=== PATIENT | male | born 1970 | race Caucasian/White ===

== ENCOUNTER 2016-10-20 00:57 | Inpatient (IN) | payer MEDICAID ==
[2016-10-20 01:37] LABS: BASO # 0.1 K/uL (0.0-0.2); BASO % 0.7 % (0.0-2.0); EOS # 0.3 K/uL (0.0-0.7); EOS % 4.1 % (0.0-4.0); HEMATOCRIT 46.8 % (35.0-51.0); LYMPH # 1.3 K/uL (1.0-4.3); LYMPH % 16.6 % (20.0-40.0); MEAN CORPUSCULAR HEMOGLOBIN 28.6 pg (27.0-31.0); MEAN CORPUSCULAR HGB CONC 33.6 g/dL (33.0-37.0); MEAN PLATELET VOLUME 8.9 fL (7.2-11.7); MONO # 0.9 K/uL (0.0-0.8); MONO % 11.2 % (0.0-10.0); NRBC % 0.1 % (0.0-2.0); RED CELL DISTRIBUTION WIDTH 13.8 % (11.5-14.5); WHITE BLOOD COUNT 7.7 K/uL (4.8-10.8)
[2016-10-20 01:46] LABS: CHLORIDE 102 mmol/L (98-107); POTASSIUM 3.4 mmol/L (3.6-5.2); SODIUM 141 mmol/L (132-148)
[2016-10-20 01:48] LABS: GFR AFRICAN-AMERICAN > 60
[2016-10-20 01:49] LABS: ALB/GLOB RATIO 1.1 (1.0-2.1); ALKALINE PHOSPHATASE 93 U/L (38-126); ALT/SGPT 25 U/L (21-72); AST/SGOT 19 U/L (17-59); BILIRUBIN,TOTAL 0.9 mg/dL (0.2-1.3); BLOOD UREA NITROGEN 16 mg/dL (9-20); CALCIUM 9.2 mg/dl (8.6-10.4); CARBON DIOXIDE 26 mmol/L (22-30); GLUCOSE,RANDOM 89 mg/dL (75-110); TOTAL PROTEIN 7.6 g/dL (6.3-8.3)
[2016-10-20 01:50] LABS: ALCOHOL SERUM < 10 mg/dl (0-10)
[2016-10-20 02:18] LABS: RBC URINE 5 /hpf (0-3); URINE BILIRUBIN NEGATIVE (NEGATIVE); URINE COLOR Amber (YELLOW); URINE GLUCOSE (UA) NORMAL (Normal); URINE KETONE NEGATIVE (NEGATIVE); URINE LEUKOCYTE ESTERASE NEG Leu/uL (Negative); URINE PROTEIN NEGATIVE (NEGATIVE); WBC URINE 2 /hpf (0-5)
[2016-10-20 02:30] LABS: URINE BLOOD TRACE (NEGATIVE)
--- NOTE | 2016-10-20 03:06 | C.PDOC ---
History Of Present Illness A 46 y/o M presents to the ER c/o depression and suicidal ideation for a while now. Denies any somatic complaints at this time. Time Seen by Provider: 10/20/16 01:24 Chief Complaint (Nursing): Psychiatric Evaluation History Per: Patient History/Exam Limitations: no limitations Onset/Duration Of Symptoms: Hrs Current Symptoms Are (Timing): Still Present Suicide/Self Injury Attempted (Context): None Modifying Factor(s): None Severity: Mild Associated Symptoms: Suicidal Thoughts. denies: Suicidal Plan Involuntary Hold By: None Recent travel outside of the [place]: No Additional History Per: Patient Past Medical History Reviewed: Historical Data, Nursing Documentation, Vital Signs Vital Signs: Last Vital Signs Temp 97.6 F 10/20/16 01:14 Pulse 81 10/20/16 01:14 Resp 20 10/20/16 01:14 BP 128/81 10/20/16 01:14 Pulse Ox 98 10/20/16 03:06 - Medical History PMH: Depression Denies: Diabetes, Hepatitis, HIV, HTN (Patient denied), Seizures, Sexually Transmitted Disease - [facility] Procedures GROUP PSYCHOTHERAPY (02/23/15) MEDICATION MANAGEMENT (02/23/15) Family History: States: Diabetes - Social History Hx Tobacco Use: Yes Hx Alcohol Use: No Hx Substance Use: Yes - Immunization History Hx Tetanus Toxoid Vaccination: No Hx Influenza Vaccination: Yes Hx Pneumococcal Vaccination: No Review Of Systems Except As Marked, All Systems Reviewed And Found Negative. Constitutional: Negative for: Fever, Chills Cardiovascular: Negative for: Chest Pain, Palpitations Respiratory: Negative for: Shortness of Breath Gastrointestinal: Negative for: Nausea, Vomiting, Abdominal Pain, Diarrhea Neurological: Negative for: Headache Psych: Positive for: Depression, Suicidal ideation Physical Exam - Physical Exam Appears: Non-toxic, No Acute Distress Skin: Warm, Dry Head: Atraumatic, Normacephalic Cardiovascular: Rhythm Regular Respiratory: Normal Breath Sounds, No Rales, No Rhonchi, No Wheezing Gastrointestinal/Abdominal: Soft, No Tenderness Neurological/Psych: Oriented x3, Normal Speech, Normal Cognition ED Course And Treatment - Laboratory Results Result Diagrams: 10/20/16 01:33 10/20/16 01:33 Lab Interpretation: Abnormal (tox + cannabanoids, cocaine) O2 Sat by Pulse Oximetry: 98 (RA) Pulse Ox Interpretation: Normal Reevaluation Time: 03:04 Reassessment Condition: Improved (calm, cooperative) - Physician Consult Information Outcome Of Conversation: 0300: d/w Rosemaryi, ok to 5E Medical Decision Making Medical Decision Making: Impression: A 46 y/o M presents to the ER c/o depression and suicidal ideation for a while now. Plans: * Blood work up * UA * Admit to hospital * Reassess polysubstance abuse, depression Disposition Doctor Will See Patient In The: Hospital Counseled Patient/Family Regarding: Studies Performed, Diagnosis - Disposition Disposition: HOSPITALIZED Disposition Time: 03:06 Condition: GOOD Forms: [facility] (H[place]er) - Clinical Impression Clinical Impression: Polysubstance (excluding opioids) dependence, Depression - Scribe Statement The provider has reviewed the documentation as recorded by the Scribe Calista merino All medical record entries made by the Scribe were at my direction and personally dictated by me. I have reviewed the chart and agree that the record accurately reflects my personal performance of the history, physical exam, medical decision making, and the department course for this patient. I have also personally directed, reviewed, and agree with the discharge instructions and disposition.
--- NOTE | 2016-10-20 07:06 | PCM.BM ---
<Norma Melendrez - Last Filed: 10/20/16 07:04> Treatment Plan Problems - Problems identified on initial assessmt Problem 1 Date Initiated: 10/20/16 Time Initiated: 07:04 Assessment reference: NA Status: Active Comment: suicidal ideations Problem 2 Date Initiated: 10/20/16 Time Initiated: 07:05 Assessment reference: NA Status: Active Comment: cocaine and marijuana abuse Treatment assets and liabiliti Patient Assests: cooperative, ADL independent Patient Liabilities: poor support system, substance abuse - Milieu Protocol Maintain good personal hygiene: daily Encourage regular showers, daily Remind patient to perform daily oral care Conduct patient checks and document Observation sheet: Q15 minutes Maintain personal safety: every shift Educate patient to report safety concerns to staff, every shift Monitor environment for contraband/sharps Medication safety: Monitor for expected outcome, potential side effects: every shift, Assess barriers to learning: every shift, Assess readiness for medication education: every shift <Arabella Rodriguez - Last Filed: 10/20/16 11:01> Family Contact Family involvement: Famliy/SO not involved - Goals for Treatment Patient goals for treatment: "I need an outpatient program." Discharge/Continuing Care - Education Needs Education Needs: Patient Medication, Patient Coping Skills, Patient Placement options, Patient Community resources - Discharge Discharge Criteria: Tolerates medication w/o severe side effects, No longer exhibiting s/s of withdrawal, Reduction of target symptoms Discharge to:: Home - Treatment Team Participation Patient/Family/SO Statement: 10/20/16 11:00 "I need an outpatient program." Discussed with Family/SO: No Was Patient/Family/SO present at Treatment Team Meeting: Yes <James Calle - Last Filed: 10/21/16 13:38> - Diagnosis (1) Depression Status: Acute Interventions: 10/21/16 13:38 * Assess/adjust medications daily and /or as needed * See patient on an individual basis 7x/week to assess level of depressive behaviors and stability * Discuss risks, benefits, side effects and alternatives of medications
--- NOTE | 2016-10-20 14:21 | PCM.PSYCH ---
Initial Psychiatric Evaluation - Initial Psychiatric Evaluation Type of Admission: Voluntary Legal Status: Capacity Chief Complaint (in patient's own words): "I had thoughts of hurting myself" Patient's Reaction to Hospitalization: cooperative History of Present Illness and Precipitating Events: Patient is a 46 year old male who came in because he was feeling depressed and having thoughts of hurting himself. Patient denies hearing voices. Patient has a history of cocaine use since the age of 26 which he claims he has been clean from since 2010 until a few days ago. However, urine tox screen was positive for opiates and cocaine 02/23/15 when he was hospitalized for depression at [facility]. Utox on current admission was positive for cocaine and marijuana. Patient says he smokes a joint occasionally. Patient denies alcohol or any other drugs. Patient says he relapsed because his friends were doing cocaine and he wanted some. Patient has been to 4 rehabs (2001, 2012, 2013, 2015). Patient has a history of depression and says he has been hospitalized 2 times. Patient has been taking Lexapro for one year which he ran out of 2 months ago. Today patient feels exhausted, no nausea, vomiting, or abdominal pain. Patient says he feels safe being in the hospital. 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 [employer], has a 23 year old child cocaine last used 1/2 gram, denies alcohol, marijuana: 1 joint occasionally, tobacco: 1/2 pack per day for 15 years, denies other drugs Past Psychiatric History - Past Psychiatric History Previous Treatment History: Inpatient At [facility] hospital: [facility] Date: 02/24/15 Duration: 4 Nature of Treatment: depression, discharged to [facility] [place]" History of ETOH/Drug Use: cocaine marijuana- 1 joint occasionally no alcohol or other drugs tobacco: 1/2 pack per day for 15 years History of Family Illness: cousins-depressed Pertinent Medical Hx (Current Medical&Sleep Prob, Allergies): Allergies Allergy/AdvReac Type Severity Reaction Status Date / Time sulfamethoxazole Allergy Verified 10/20/16 01:19 [From Bactrim] trimethoprim [From Bactrim] Allergy Verified 10/20/16 01:19 seafood Allergy Uncoded 10/20/16 01:19 No Known Home Med 10/20/16 Review of Systems - Psychiatric Psychiatric: Anxiety, Depression, Suicidal Ideation. absent: Auditory Hallucinations, Visual Hallucinations Mental Status Examination - Personal Presentation Personal Presentation: Looks stated age - Affect Affect: Constricted - Motor Activity Motor Activity: Calm - Reliability in Providing Information Reliability in Providing Information: Fair - Speech Speech: Organized - Mood Mood: Depressed, Anxious - Formal Thought Process Formal Thought Process: No Impairment - Obsessions/Compulsions Obsessions: No Compulsions: No - Cognitive Functions Orientation: Person, Place, Situation, Time Sensorium: Alert Attention/Concentration: Attentive Abstract Thinking: Gaffney Estimate of Intelligence: Average Judgement: Intact, as evidence by: Insight regarding need for hospitalization Memory: Recent intact, as evidence by: Ability to recall events of the day - Risk Risk: Suicidal - Strength & Assets Inventory Strength & Assets Inventory: Employment history DSM 5 DX - DSM 5 DSM 5 Diagnosis: major depressive disorder, recurrent episode cocaine use disorder, moderate cocaine withdrawal tobacco use disorder, moderate - Recommended/Plan of Treatment Treatment Recommendations and Plan of Treatment: Major depressive disorder -Support and psychoeducation -Attend activities and groups -Use CBT -Lexapro 10 mg po daily -Neurontin 100mg PO TID -Haldol 5mg po PRN -Cogentin 2 mg po PRN -Diphenhydramine 50 mg PRN -Atarax 25mg PRN -Trazodone 50 mg PO HS Cocaine use disorder -Use ME for abstinence -Consider referring to a rehabilitation Tobacco use disorder -Education -Nicotine patch 33min Projected ELOS: 7 Prognosis: fair with medications - Smoking Cessation Smoking Cessation Initiated: Yes
--- NOTE | 2016-10-20 15:29 | CP.PCM.CON ---
<Jamie Baumann - Last Filed: 10/20/16 15:48> History of Present Illness - History of Present Illness History of Present Illness: 46M PMHx depression, sarcoidosis and substance use presented here for depression and suicidal ideation. Medicine team consulted for sarcoidosis. Pt said he was diagnosed in 2005 after having skin breakout on his face while in [facility]. Pt was sent to a derm office and had biopsy done on a nose lesion. Pt said since then he was managed by a doctor at [place], [place]. He has been taking Prednisone 20mg on daily basis until 2 months ago when he ran out and was not able to see that doctor. Pt complains of right elbow pain and bilateral knee pain for the past month, for which he denied any trauma or fall. Pt said he had similar joint pain and skin breakout when he missed Prednisone in the past for about several weeks. Pt was last seen by that doctor 8 months ago. Pt also complains of blurry vision started 6 months ago and progressively worsened. Currently denied other joint pain, skin rashes, SOB, chest pain, fever, chills or other symptoms. PMHx: see above. 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 [employer], has a 23 year old child cocaine last used 1/2 gram, denies alcohol, marijuana: 1 joint occasionally, tobacco: 1/2 pack per day for 15 years, denies other drugs Allergies: Bactrim Review of Systems - Constitutional Constitutional: absent: Weakness - EENT Eyes: Blurred Vision, Change in Vision Ears: absent: Dizziness Nose/Mouth/Throat: absent: Neck Pain - Cardiovascular Cardiovascular: absent: Chest Pain, Chest Pain at Rest, Dyspnea - Respiratory Respiratory: absent: Cough, Dyspnea, Chest Congestion - Gastrointestinal Gastrointestinal: absent: Constipation, Diarrhea, Vomiting - Genitourinary Genitourinary: absent: Dysuria, Pyuria - Musculoskeletal Musculoskeletal: Arthralgias (right elbow and bilateral knees). absent: Limited Range of Motion, Muscle Weakness, Numbness, Tingling - Integumentary Integumentary: absent: Bleeding Lesions, Lesions, New Lesions, Unusual Bruising , Wounds - Neurological Neurological: absent: Abnormal Gait, Focal Weakness - Psychiatric Psychiatric: Depression Past Patient History - Infectious Disease Hx of Infectious Diseases: None - Past Social History Smoking Status: Heavy Smoker > 10 Cigarettes Daily - CARDIAC Hx Cardiac Disorders: No Hx Hypertension: No (Patient denied) - PULMONARY Hx Respiratory Disorders: No Hx Tuberculosis: No - NEUROLOGICAL Hx Neurological Disorder: No Hx Seizures: No - HEENT Hx HEENT Problems: No - RENAL Hx Chronic Kidney Disease: No - ENDOCRINE/METABOLIC Hx Endocrine Disorders: No - HEMATOLOGICAL/ONCOLOGICAL Hx Blood Disorders: No Hx Human Immunodeficiency Virus (HIV): No - INTEGUMENTARY Hx Dermatological Problems: No Other/Comment: Sarcoidosis - MUSCULOSKELETAL/RHEUMATOLOGICAL Hx Musculoskeletal Disorders: No - GASTROINTESTINAL Hx Gastrointestinal Disorders: No - GENITOURINARY/GYNECOLOGICAL Hx Genitourinary Disorders: No Hx Sexually Transmitted Disorders: No - PSYCHIATRIC Hx Substance Use: Yes - SURGICAL HISTORY Hx Surgeries: No - ANESTHESIA Hx Anesthesia: No Meds Allergies/Adverse Reactions: Allergies Allergy/AdvReac Type Severity Reaction Status Date / Time sulfamethoxazole Allergy Verified 10/20/16 01:19 [From Bactrim] trimethoprim [From Bactrim] Allergy Verified 10/20/16 01:19 seafood Allergy Uncoded 10/20/16 01:19 - Medications Medications: Current Medications Acetaminophen (Tylenol 325mg Tab) 650 mg PO Q6 PRN PRN Reason: Fever >100.4 F Benztropine Mesylate (Cogentin) 2 mg PO Q6 PRN PRN Reason: Extra Pyramidal Symptoms Diphenhydramine HCl (Benadryl) 50 mg PO Q6 PRN PRN Reason: Extra Pyramidal Symptoms Escitalopram Oxalate (Lexapro) 10 mg PO DAILY DINORA Gabapentin (Neurontin) 100 mg PO TID DINORA Haloperidol (Haldol) 5 mg PO Q8 PRN PRN Reason: Moderate Agitation Hydroxyzine HCl (Atarax) 25 mg PO Q6 PRN PRN Reason: Agitation Trazodone HCl (Desyrel) 50 mg PO HS DINORA Physical Exam - Constitutional Appears: Non-toxic, No Acute Distress - Head Exam Head Exam: NORMOCEPHALIC - Eye Exam Eye Exam: Normal appearance Pupil Exam: NORMAL ACCOMODATION - Respiratory Exam Respiratory Exam: Clear to Auscultation Bilateral, NORMAL BREATHING PATTERN. absent: Rhonchi, Wheezes - Cardiovascular Exam Cardiovascular Exam: REGULAR RHYTHM, +S1, +S2. absent: Gallop, Rubs - GI/Abdominal Exam GI & Abdominal Exam: Normal Bowel Sounds, Soft. absent: Tenderness - Extremities Exam Extremities exam: Negative for: pedal edema Additional comments: right elbow, bilateral knee joints tenderness on palpation, FROMx4, strength and sensation intact - Back Exam Back exam: NORMAL INSPECTION. absent: paraspinal tenderness, rash noted, tenderness - Neurological Exam Neurological exam: Alert, Normal Gait, Oriented x3 - Psychiatric Exam Psychiatric exam: Normal Mood - Skin Skin Exam: Dry, Intact Results - Vital Signs Recent Vital Signs: Last Vital Signs Temp 97.3 F L 10/20/16 03:39 Pulse 75 10/20/16 04:24 Resp 18 10/20/16 04:24 BP 96/55 L 10/20/16 03:39 Pulse Ox 98 10/20/16 03:39 - Labs Result Diagrams: 10/20/16 01:33 10/20/16 01:33 Assessment & Plan - Assessment and Plan (Free Text) Assessment: Sardoidosis Pt currently has asymptomatic except right elbow and bilateral knee pain. Will restart pt's home dose of prednisone 20mg PO daily. Medicine team will sign off. Please reconsult if needed. Thank you. Substance use disorder Management as per psych. Depression Management as per psych. <Chapincito Faulkner M - Last Filed: 10/20/16 15:55> Meds - Medications Medications: Current Medications Acetaminophen (Tylenol 325mg Tab) 650 mg PO Q6 PRN PRN Reason: Fever >100.4 F Benztropine Mesylate (Cogentin) 2 mg PO Q6 PRN PRN Reason: Extra Pyramidal Symptoms Diphenhydramine HCl (Benadryl) 50 mg PO Q6 PRN PRN Reason: Extra Pyramidal Symptoms Escitalopram Oxalate (Lexapro) 10 mg PO DAILY DINORA Gabapentin (Neurontin) 100 mg PO TID DINORA Haloperidol (Haldol) 5 mg PO Q8 PRN PRN Reason: Moderate Agitation Hydroxyzine HCl (Atarax) 25 mg PO Q6 PRN PRN Reason: Agitation Potassium Chloride (K-Dur 20 Meq Er Tab) 20 meq PO ONCE ONE Stop: 10/21/16 16:01 Prednisone (Prednisone Tab) 20 mg PO DAILY DINORA Trazodone HCl (Desyrel) 50 mg PO HS [facility] Results - Vital Signs Recent Vital Signs: Last Vital Signs Temp 97.3 F L 10/20/16 03:39 Pulse 70 10/20/16 15:39 Resp 18 10/20/16 04:24 BP 113/71 10/20/16 15:39 Pulse Ox 98 10/20/16 03:39 - Labs Result Diagrams: 10/20/16 01:33 10/20/16 01:33 Attending/Attestation - Attestation I have personally seen and examined this patient.: Yes I have fully participated in the care of the patient.: Yes I have reviewed all pertinent clinical information: Yes Notes (Text): 10/20/16 15:53 Patient was seen and examined at bedside with the resident Patient stated that he's been taking prednisone 20 mg daily for the last 10 years. He ran out of medication recently and that he needs to be on it because of his diagnosis of sarcoidosis. We will start the patient on prednisone 20 mg daily. We will replace potassium. I discussed the plan of care with the resident and agree with the consultation note by the resident Thank you for allowing us to participate in the care of this patient Please reconsult as needed
[2016-10-21] MEDS ORDERED: Potassium Chloride 20 mEq ER Tab PO ONE (16:00)
--- NOTE | 2016-10-22 12:45 | PCM.PYCHPN ---
Psychiatric Progress Note - Psychiatric Progress Note Patient seen today, length of contact: 16 min Patient Chief Complaint: i am feeling depressed. Problems Identified/Issues Discussed: Patient seen and evaluated, chart reviewed and discussed with the nurse. Supportive therapy and psychoeducation were given. Patient reports depressed mood and still reports withdrawal symptoms including, cramps, nausea, anxiety and headaches. Patient reports at times feelings of hopelessness and helplessness. He remained isolated and withdrawn. He denies any auditory or visual hallucinations. He is tolerating the withdrawal medications and denies any side effects. Medication Change: Yes (methaodne taper) Medical Record Reviewed: Yes Mental Status Examination - Cognitive Function Orientation: Person, Place, Situation, Time Memory: Intact Attention: WNL Concentration: Poor Association: WNL Fund of Knowledge: Poor - Mood Mood: Depressed, Anxious - Affect Affect: Constricted - Speech Speech: Soft - Formal Thought Process Formal Thought Process: No Impairment - Suicidal Ideation Suicidal Ideation: No - Homicidal Ideation Homicidal Ideation: No Goal/Treatment Plan - Goal/Treatment Plan Need for Continued Stay: Discharge may exacerbated symptoms, Severe functional impairment Progress Toward Problem(s) and Goals/Treatment Plan: major depressive disorder, recurrent episode cocaine use disorder, moderate cocaine withdrawal tobacco use disorder, moderate Major depressive disorder -Support and psychoeducation -Attend activities and groups -Use CBT -Lexapro 10 mg po daily -Neurontin 100mg PO TID -Haldol 5mg po PRN -Cogentin 2 mg po PRN -Diphenhydramine 50 mg PRN -Atarax 25mg PRN -Trazodone 50 mg PO HS Cocaine use disorder -Use OK for abstinence -Consider referring to a rehabilitation Tobacco use disorder -Education -Nicotine patch - Smoking Cessation Smoking Cessation Initiated: No
--- NOTE | 2016-10-22 12:45 | PCM.PYCHPN ---
Psychiatric Progress Note - Psychiatric Progress Note Patient seen today, length of contact: 17 min Patient Chief Complaint: I am still feeling depressed Problems Identified/Issues Discussed: Patient seen and evaluated, chart reviewed and discussed with the nurse. Patient remained depressed and still reports withdrawal symptoms including, cramps, nausea, anxiety and headaches. He remained isolated and withdrawn. He denies any auditory or visual hallucinations. He is tolerating the withdrawal medications and denies any side effects. He needs more time for stabilization. Supportive therapy and psychoeducation were given. Medication Change: Yes (methaodne taper) Medical Record Reviewed: Yes Mental Status Examination - Cognitive Function Orientation: Person, Place, Situation, Time Memory: Intact Attention: WNL Concentration: Poor Association: WNL Fund of Knowledge: Poor - Mood Mood: Depressed, Anxious - Affect Affect: Constricted - Speech Speech: Soft - Formal Thought Process Formal Thought Process: No Impairment - Suicidal Ideation Suicidal Ideation: No - Homicidal Ideation Homicidal Ideation: No Goal/Treatment Plan - Goal/Treatment Plan Need for Continued Stay: Discharge may exacerbated symptoms, Severe functional impairment Progress Toward Problem(s) and Goals/Treatment Plan: Major depressive disorder -Support and psychoeducation -Attend activities and groups -Use CBT -Lexapro 10 mg po daily -Neurontin 100mg PO TID -Haldol 5mg po PRN -Cogentin 2 mg po PRN -Diphenhydramine 50 mg PRN -Atarax 25mg PRN -Trazodone 50 mg PO HS Cocaine use disorder -Use OR for abstinence -Consider referring to a rehabilitation Tobacco use disorder -Education -Nicotine patch - Smoking Cessation Smoking Cessation Initiated: No
[2016-10-23 10:32] VITALS: RESP 18
--- NOTE | 2016-10-23 18:00 | PCM.PYCHPN ---
Psychiatric Progress Note - Psychiatric Progress Note Patient seen today, length of contact: 15 minutes Patient Chief Complaint: I'm feeling much better Problems Identified/Issues Discussed: Issues seen. Chart reviewed. Case discussed with the staff. Issues related to illness and treatment were discussed with the patient. Ported compliant with treatment with no adverse affects. Tolerating treatment very well. At the time of evaluation, patient was awake alert oriented 3, no delusions, no auditory or visual hallucinations, no suicidal ideations or homicidal ideations. Medical Problems: Sarcoidosis Diagnostic Results: Reviewed Medication Change: No Medical Record Reviewed: Yes Consults ordered or reviewed: Reviewed Mental Status Examination - Cognitive Function Orientation: Person, Place, Situation, Time Memory: Intact Attention: WNL Concentration: WNL Association: [facility] Fund of Knowledge: [facility] Decription of patient's judgement and insights: Fair - Mood Mood: Neutral - Affect Affect: Other (Appropriate) - Speech Speech: Soft - Formal Thought Process Formal Thought Process: No Impairment - Suicidal Ideation Suicidal Ideation: No - Homicidal Ideation Homicidal Ideation: No Goal/Treatment Plan - Goal/Treatment Plan Need for Continued Stay: Remain at risks for inpatient hospitalization, Discharge may exacerbated symptoms, Severe functional impairment Progress Toward Problem(s) and Goals/Treatment Plan: Patient education Supportive therapy Continue treatment as before Estimated Date of D/C: 10/27/16 - Smoking Cessation Smoking Cessation Initiated: No
--- NOTE | 2016-10-24 16:11 | PCM.PYCHPN ---
Psychiatric Progress Note - Psychiatric Progress Note Patient seen today, length of contact: 15 minutes Patient Chief Complaint: I'm feeling much better Problems Identified/Issues Discussed: Issues seen. Chart reviewed. Case discussed with the staff. Issues related to illness and treatment were discussed with the patient. Ported compliant with treatment with no adverse affects. Tolerating treatment very well. Reported feeling much better .At the time of evaluation, patient was awake alert oriented 3, no delusions, no auditory or visual hallucinations, no suicidal ideations or homicidal ideations. Medical Problems: Sarcoidosis Diagnostic Results: Reviewed DSM 5 Symptoms Update: Improving with treatment Medication Change: No Medical Record Reviewed: Yes Consults ordered or reviewed: Reviewed Mental Status Examination - Cognitive Function Orientation: Person, Place, Situation, Time Memory: Intact Attention: WNL Concentration: WNL Association: WN Fund of Knowledge: [facility] Decription of patient's judgement and insights: Fair - Mood Mood: Neutral - Affect Affect: Other (Appropriate) - Speech Speech: Soft - Formal Thought Process Formal Thought Process: No Impairment - Suicidal Ideation Suicidal Ideation: No - Homicidal Ideation Homicidal Ideation: No Goal/Treatment Plan - Goal/Treatment Plan Need for Continued Stay: Remain at risks for inpatient hospitalization, Discharge may exacerbated symptoms, Severe functional impairment Progress Toward Problem(s) and Goals/Treatment Plan: Patient education Supportive therapy Continue treatment as before Estimated Date of D/C: 10/27/16 - Smoking Cessation Smoking Cessation Initiated: No
[2016-10-25 07:34] VITALS: BP 100/60; PULSE 79; TEMP 97; O2SAT 99
--- NOTE | 2016-10-25 10:27 | PCM.PYCHDC ---
Mental Status Examination - Mental Status Examination Orientation: Person, Place, Situation, Time Memory: Intact Mood: Neutral Affect: Constricted Speech: Soft Attention: WNL Concentration: WNL Association: WNL Fund of Knowledge: WNL Formal Thought Process: No Impairment Description of patient's judgement and insight: good, fair Psychotic Thoughts and Behaviors: denies any AVH Suicidal Ideation: No Current Homicidal Ideation?: No Discharge Summary - Discharge Note Reason for Hospitalization: Patient is a 46 year old male who came in because he was feeling depressed and having thoughts of hurting himself. Patient denies hearing voices. Patient has a history of cocaine use since the age of 26 which he claims he has been clean from since 2010 until a few days ago. However, urine tox screen was positive for opiates and cocaine 02/23/15 when he was hospitalized for depression at [facility]. Utox on current admission was positive for cocaine and marijuana. Patient says he smokes a joint occasionally. Patient denies alcohol or any other drugs. Patient says he relapsed because his friends were doing cocaine and he wanted some. Patient has been to 4 rehabs (2001, 2012, 2013, 2015). Patient has a history of depression and says he has been hospitalized 2 times. Patient has been taking Lexapro for one year which he ran out of 2 months ago. Today patient feels exhausted, no nausea, vomiting, or abdominal pain. Patient says he feels safe being in the hospital. Psychiatric History (includes Medical, Family, Personal Hx): depression, discharged to [facility] "[facility] in [place]" Consultations:: List each consultation separately and include: 1. Reason for request. 2. Findings. 3. Follow-up Summary of Hospital Course include:: 1. Description of specific treatment plan utilized for patients during their course of treatmen. 2. Summarize the time- course for resolution of acute symptoms and/or regressed behaviors. 3. Describe issues identified and worked on during hospitalization. 4. Describe medication utilized. 5. Describe medical problems identified and treated. 6. Reassessment of suicide risk Summary of Hospital Course: During the course of his stay, patient (pt) started progressively improving and he no longer remained irritable, depressed, and suicidal. His mood was improved and he started attending groups and meetings and started socializing. Patient denied any feelings of hopelessness, helplessness, and worthlessness, denied any problem with the sleep or appetite, denied suicidal ideation or homicidal ideation. Pt denied any auditory or visual hallucinations. Some changes were made in his current medications and patient was discharged on following medications. He tolerated these medications very well and denied any side effects. CBT and [place] were used. - Diagnosis (1) Depression Status: Acute - Final Diagnosis (DSM 5) Condition upon Discharge: GOOD DSM 5: major depressive disorder, recurrent episode cocaine use disorder, moderate Disposition: HOME/ ROUTINE Follow-up Treatment Plan: Education: Pt was educated and counseled about the risks and benefits of taking and not taking medications. Pt was educated and counseled about the risks of drinking and abusing drugs. Pt was educated and counseled to go to the ER or call 911 if pt develop suicidal ideation or homicidal ideation, worsening of symptoms or severe side effects of the meds. Prescriptions/Medication Reconciliation: Escitalopram [Lexapro] 10 mg PO DAILY 14 Days Gabapentin [Neurontin] 100 mg PO BID 14 Days traZODone [Desyrel] 50 mg PO HS 14 Days - Smoking Cessation Smoking Cessation Medication prescribed: No - Antipsychotic Medications Pt discharged on 2 or more routine antipsychotic medications: No
== END 2016-10-25 11:15 | disposition home or self-care (01) | DRG 430 ==
LOC: C.ER 00:57 → C.5E 03:03
PROC: GZ3ZZZZ Medication Management (ICD-10-PCS; principal; 2016-10-20)
PROC: GZHZZZZ Group Psychotherapy (ICD-10-PCS; 2016-10-20)
PROC: HZ89ZZZ Medication Management for Substance Abuse Treatment, Other Replacement Medication (ICD-10-PCS; 2016-10-20)
PROC: HZ80ZZZ Medication Management for Substance Abuse Treatment, Nicotine Replacement (ICD-10-PCS; 2016-10-20)
PROC: GZ56ZZZ Individual Psychotherapy, Supportive (ICD-10-PCS; 2016-10-20)
DX: F33.9 Major depressive disorder, recurrent, unspecified (principal); R45.851 Suicidal ideations; F14.23 Cocaine dependence with withdrawal; F12.10 Cannabis abuse, uncomplicated; F17.210 Nicotine dependence, cigarettes, uncomplicated; D86.9 Sarcoidosis, unspecified

== ENCOUNTER 2016-10-27 00:59 | Inpatient (IN) | payer MEDICAID ==
[2016-10-27 01:28] LABS: BASO # 0.1 K/uL (0.0-0.2); BASO % 0.8 % (0.0-2.0); EOS # 0.2 K/uL (0.0-0.7); HEMATOCRIT 50.3 % (35.0-51.0); LYMPH # 1.4 K/uL (1.0-4.3); LYMPH % 13.7 % (20.0-40.0); MEAN CELL VOLUME 85.5 fL (80.0-94.0); MEAN CORPUSCULAR HGB CONC 32.7 g/dL (33.0-37.0); MEAN PLATELET VOLUME 9.2 fL (7.2-11.7); MONO % 9.5 % (0.0-10.0); NRBC % 0.3 % (0.0-2.0); RED CELL DISTRIBUTION WIDTH 13.4 % (11.5-14.5); WHITE BLOOD COUNT 10.2 K/uL (4.8-10.8)
[2016-10-27 01:34] LABS: RBC URINE 5 /hpf (0-3); URINE BILIRUBIN NEGATIVE (NEGATIVE); URINE BLOOD 1+ (NEGATIVE); URINE COLOR Amber (YELLOW); URINE GLUCOSE (UA) NORMAL (Normal); URINE KETONE NEGATIVE (NEGATIVE); URINE LEUKOCYTE ESTERASE NEG Leu/uL (Negative); URINE PROTEIN 1+ mg/dL (NEGATIVE); WBC URINE 2 /hpf (0-5)
[2016-10-27 01:36] LABS: CHLORIDE 98 mmol/L (98-107); SODIUM 143 mmol/L (132-148)
[2016-10-27 01:37] LABS: POTASSIUM 4.1 mmol/L (3.6-5.2)
[2016-10-27 01:38] LABS: GFR AFRICAN-AMERICAN > 60
[2016-10-27 01:39] LABS: ALB/GLOB RATIO 1.1 (1.0-2.1); ALKALINE PHOSPHATASE 103 U/L (38-126); ALT/SGPT 36 U/L (21-72); AST/SGOT 24 U/L (17-59); BILIRUBIN,TOTAL 0.9 mg/dL (0.2-1.3); BLOOD UREA NITROGEN 24 mg/dL (9-20); CALCIUM 9.7 mg/dl (8.6-10.4); CARBON DIOXIDE 28 mmol/L (22-30); GLUCOSE,RANDOM 101 mg/dL (75-110); TOTAL PROTEIN 8.3 g/dL (6.3-8.3)
[2016-10-27 01:40] LABS: ALCOHOL SERUM < 10 mg/dl (0-10)
--- NOTE | 2016-10-27 02:17 | C.PDOC ---
History Of Present Illness 46 year old male who came in because he was feeling depressed and having thoughts of hurting himself. Patient denies hearing voices. Patient has a history of cocaine use.Pt has hx of previous hospitalization for depression at [facility]. Patient has been taking Lexapro for one year which he ran out. Otherwise, pt denies any other active physical complaints. AT the time of evaluation,m appears comfortable, appropriate. Time Seen by Provider: 10/27/16 01:10 Chief Complaint (Nursing): Psychiatric Evaluation History Per: Patient Past Medical History Reviewed: Historical Data, Nursing Documentation, Vital Signs Vital Signs: Last Vital Signs Temp 97.6 F 10/27/16 03:29 Pulse 72 10/27/16 03:29 Resp 18 10/27/16 03:29 BP 109/71 10/27/16 03:29 Pulse Ox 95 10/27/16 03:29 - Medical History PMH: Anxiety, Depression Denies: Diabetes, Hepatitis, HIV, HTN (Patient denied), Chronic Kidney Disease, Seizures, Sexually Transmitted Disease Surgical History: No Surg Hx - [facility] Procedures GROUP PSYCHOTHERAPY (10/20/16) INDIVIDUAL PSYCHOTHERAPY, SUPPORTIVE (10/20/16) MEDICATION MANAGEMENT (10/20/16) MEDS MGMT FOR SUBSTANCE ABUSE TREATMENT, NICOTINE REPLACE (10/20/16) MEDS MGMT FOR SUBSTANCE ABUSE TREATMENT, OTH REPL MED (10/20/16) Family History: States: Unknown Family Hx, Diabetes - Social History Hx Tobacco Use: Yes Hx Alcohol Use: No Hx Substance Use: Yes - Immunization History Hx Tetanus Toxoid Vaccination: No Hx Influenza Vaccination: No Hx Pneumococcal Vaccination: No Review Of Systems Except As Marked, All Systems Reviewed And Found Negative. Constitutional: Negative for: Fever, Chills Eyes: Negative for: Vision Change ENT: Negative for: Throat Pain, Throat Swelling Cardiovascular: Negative for: Chest Pain, Palpitations, Edema, Light Headedness Respiratory: Negative for: Cough, Shortness of Breath, Wheezing Gastrointestinal: Negative for: Nausea, Vomiting, Abdominal Pain, Diarrhea Genitourinary: Negative for: Dysuria, Frequency, Incontinence Musculoskeletal: Negative for: Neck Pain, Back Pain Skin: Negative for: Rash Neurological: Negative for: Weakness, Numbness, Altered Mental Status, Headache , Dizziness Psych: Positive for: Depression, Suicidal ideation. Negative for: Anxiety Physical Exam - Physical Exam Appears: Well, Non-toxic, No Acute Distress Skin: Normal Color, Warm, Dry, No Rash, No Ecchymosis Head: Atraumatic, Normacephalic Eye(s): bilateral: PERRL Ear(s): Bilateral: Normal Nose: No Flaring Oral Mucosa: Moist, No Drooling Throat: No Erythema, No Exudate Neck: Normal ROM, Supple Cardiovascular: Rhythm Regular Respiratory: No Stridor, No Wheezing Gastrointestinal/Abdominal: Soft, No Tenderness, No Distention, No Guarding Back: No Vertebral Tenderness Extremity: Normal ROM, No Pedal Edema, No Deformity Neurological/Psych: Oriented x3, Normal Speech ED Course And Treatment - Laboratory Results Result Diagrams: 10/27/16 01:25 10/27/16 01:25 Lab Interpretation: No Acute Changes O2 Sat by Pulse Oximetry: 98 Pulse Ox Interpretation: Normal Progress Note: Blood work review and appears normal, UTox (+) cocaine. Pt is medication cleared for PES evaluation, treatment. Pt was evaluated by PES and admission to psych floor s/o Dr.Bajwa soha barrera Dx: Major depression, cocaine abuse disoder. Reevaluation Time: 02:45 Disposition - Disposition Disposition: HOSPITALIZED Disposition Time: 02:44 Condition: STABLE - Clinical Impression Clinical Impression: Moderate major depression, single episode, Polysubstance (excluding opioids) dependence
--- NOTE | 2016-10-27 04:23 | PCM.BM ---
<Miles Vela - Last Filed: 10/27/16 04:21> Treatment Plan Problems - Problems identified on initial assessmt Depression Date Initiated: 10/27/16 Time Initiated: 04:21 Assessment reference: NA Status: Active Suicidal Ideation Date Initiated: 10/27/16 Time Initiated: 04:22 Assessment reference: NA Status: Active Substance Abuse Date Initiated: 10/27/16 Time Initiated: 04:22 Assessment reference: NA Status: Active Treatment assets and liabiliti Patient Assests: cooperative, self-reliant, ADL independent, negotiates basic needs Patient Liabilities: live alone, financial problems, poor support system, substance abuse, medical problems - Milieu Protocol Maintain good personal hygiene: daily Encourage regular showers, daily Remind patient to perform daily oral care, daily Assist patient to perform ADL's Maintain personal safety: every shift Educate patient to report safety concerns to staff, every shift Monitor environment for contraband/sharps Medication safety: Monitor for expected outcome, potential side effects: every shift, Assess barriers to learning: every shift, Assess readiness for medication education: every shift <Roger Vasquez - Last Filed: 10/27/16 16:57> - Diagnosis (1) Major depressive disorder, recurrent severe without psychotic features Status: Acute Interventions: 10/27/16 16:57 Lexapro Gabapentin (2) Cocaine use disorder, mild, abuse Status: Acute Interventions: 10/27/16 16:58 Psychotherapy <Arabella Rodriguez - Last Filed: 10/29/16 11:35> Family Contact Family involvement: Family/SO is involved Family contact: Patient declines to allow family contact at present - Goals for Treatment Patient goals for treatment: "I need to go to outpatient program." Discharge/Continuing Care - Education Needs Education Needs: Patient Medication, Patient Coping Skills, Patient Placement options, Patient Community resources - Discharge Discharge Criteria: Tolerates medication w/o severe side effects, Free of Suicidal thoughts, No longer exhibiting s/s of withdrawal, Reduction of target symptoms Discharge to:: Home, With Family - Treatment Team Participation Discussed with Family/SO: No Was Patient/Family/SO present at Treatment Team Meeting: Yes
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
--- NOTE | 2016-10-30 10:43 | PCM.PYCHPN ---
Psychiatric Progress Note - Psychiatric Progress Note Patient seen today, length of contact: 16 min Patient Chief Complaint: I am feeling little better.' Problems Identified/Issues Discussed: Patient seen and evaluated, chart reviewed and discussed with the nurse. Today patient reports some improvement in his depressed mood but still remained isolated, withdrawn and confined to his room. However he denies any suicidal ideation or homicidal ideation. He is taking medications and denies any side effects. He needs more time for stabilization. Supportive therapy and psychoeducation were given. Medication Change: No Medical Record Reviewed: Yes Mental Status Examination - Cognitive Function Orientation: Person, Place, Situation, Time Memory: Intact Attention: WNL Concentration: Poor Association: WNL Fund of Knowledge: Poor - Mood Mood: Depressed, Anxious - Affect Affect: Depressed - Speech Speech: Soft - Formal Thought Process Formal Thought Process: No Impairment - Suicidal Ideation Suicidal Ideation: No - Homicidal Ideation Homicidal Ideation: No Goal/Treatment Plan - Goal/Treatment Plan Need for Continued Stay: Discharge may exacerbated symptoms, Severe functional impairment Progress Toward Problem(s) and Goals/Treatment Plan: Major depressive disorder recurrent severe without psychotic features CBT Psychoeducation Supportive therapy, group therapy, individual therapy Lexapro 10 mg by mouth daily Neurontin 300 mg by mouth 3 times a day Trazodone 50 mg by mouth daily at bedtime Cocaine use disorder severe CBT Psychoeducation Supportive therapy, individual therapy Use [place] for abstinence - Smoking Cessation Smoking Cessation Initiated: No
--- NOTE | 2016-10-31 11:46 | PCM.PYCHPN ---
Psychiatric Progress Note - Psychiatric Progress Note Patient seen today, length of contact: 15 min Patient Chief Complaint: I am feeling much better. Problems Identified/Issues Discussed: Patient seen and evaluated, chart reviewed and discussed with the nurse. As per the staff, patient reports improvement in his mood and started coming out of his room. He is social and attending groups. He denies any suicidal ideation or homicidal ideation. He is taking medications and denies any side effects. He needs more time for stabilization. Supportive therapy and psychoeducation were given. Medication Change: No Medical Record Reviewed: Yes Mental Status Examination - Cognitive Function Orientation: Person, Place, Situation, Time Memory: Intact Attention: WNL Concentration: WNL Association: WNL Fund of Knowledge: WNL - Mood Mood: Anxious - Affect Affect: Constricted - Speech Speech: Soft - Formal Thought Process Formal Thought Process: No Impairment - Suicidal Ideation Suicidal Ideation: No - Homicidal Ideation Homicidal Ideation: No Goal/Treatment Plan - Goal/Treatment Plan Need for Continued Stay: Discharge may exacerbated symptoms, Severe functional impairment Progress Toward Problem(s) and Goals/Treatment Plan: Patient seen and evaluated, chart reviewed and discussed with the nurse. Today patient reports some improvement in his depressed mood but still remained isolated, withdrawn and confined to his room. However he denies any suicidal ideation or homicidal ideation. He is taking medications and denies any side effects. He needs more time for stabilization. Supportive therapy and psychoeducation were given. - Smoking Cessation Smoking Cessation Initiated: No
[2016-11-01 08:24] VITALS: BP 117/67; PULSE 60; RESP 20; TEMP 97.7; O2SAT 99
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
--- NOTE | 2016-11-02 10:46 | PCM.PYCHPN ---
Psychiatric Progress Note - Psychiatric Progress Note Patient seen today, length of contact: 15 minutes Patient Chief Complaint: I'm feeling better Problems Identified/Issues Discussed: Patient seen. Chart reviewed. Case discussed with the staff. Issues related to illness and treatment were discussed with the patient. Reported compliant with treatment with no adverse affects. Tolerating treatment very well. Feels better. At the time of evaluation, patient was awake alert oriented 3, had no delusions, no auditory or visual hallucinations, suicidal ideations or homicidal ideations. Medical Problems: Sarcoidosis Diagnostic Results: Reviewed DSM 5 Symptoms Update: Improving with treatment Medication Change: No Medical Record Reviewed: Yes Mental Status Examination - Cognitive Function Orientation: Person, Place, Situation, Time Memory: Intact Attention: WNL Concentration: WNL Association: [facility] Fund of Knowledge: [facility] Decription of patient's judgement and insights: Fair - Mood Mood: Depressed (Less than before) - Affect Affect: Other (Appropriate) - Speech Speech: Appropriate, Soft - Formal Thought Process Formal Thought Process: No Impairment Psychotic Thoughts and Behaviors: None - Suicidal Ideation Suicidal Ideation: No - Homicidal Ideation Homicidal Ideation: No Goal/Treatment Plan - Goal/Treatment Plan Need for Continued Stay: Remain at risks for inpatient hospitalization, Discharge may exacerbated symptoms, Severe functional impairment Progress Toward Problem(s) and Goals/Treatment Plan: Patient education Supportive therapy Continue treatment as before Estimated Date of D/C: 10/31/16 - Smoking Cessation Smoking Cessation Initiated: Yes
--- NOTE | 2016-11-02 10:47 | PCM.PYCHPN ---
Psychiatric Progress Note - Psychiatric Progress Note Patient seen today, length of contact: 15 minutes Patient Chief Complaint: I'm feeling better Problems Identified/Issues Discussed: Patient seen. Chart reviewed. Case discussed with the staff. Issues related to illness and treatment were discussed with the patient. Reported compliant with treatment with no adverse affects. Tolerating treatment very well. Feels better. At the time of evaluation, patient was awake alert oriented 3, had no delusions, no auditory or visual hallucinations, suicidal ideations or homicidal ideations. Medical Problems: Sarcoidosis Diagnostic Results: Reviewed DSM 5 Symptoms Update: Improving with treatment Medication Change: No Medical Record Reviewed: Yes Mental Status Examination - Cognitive Function Orientation: Person, Place, Situation, Time Memory: Intact Attention: WNL Concentration: WNL Association: [facility] Fund of Knowledge: [facility] Decription of patient's judgement and insights: Fair - Mood Mood: Depressed (Much Less than before) - Affect Affect: Other (Appropriate) - Speech Speech: Appropriate, Soft - Formal Thought Process Formal Thought Process: No Impairment Psychotic Thoughts and Behaviors: None - Suicidal Ideation Suicidal Ideation: No - Homicidal Ideation Homicidal Ideation: No Goal/Treatment Plan - Goal/Treatment Plan Need for Continued Stay: Remain at risks for inpatient hospitalization, Discharge may exacerbated symptoms, Severe functional impairment Progress Toward Problem(s) and Goals/Treatment Plan: Patient education Supportive therapy Continue treatment as before Estimated Date of D/C: 10/31/16 - Smoking Cessation Smoking Cessation Initiated: Yes
== END 2016-11-01 11:00 | disposition home or self-care (01) | DRG 425 ==
LOC: C.ER 00:59 → C.5E 03:17
DX: R45.851 Suicidal ideations (principal); F33.2 Major depressive disorder, recurrent severe without psychotic features; F14.10 Cocaine abuse, uncomplicated; D86.9 Sarcoidosis, unspecified; F17.210 Nicotine dependence, cigarettes, uncomplicated; F12.90 Cannabis use, unspecified, uncomplicated

== ENCOUNTER 2016-11-07 02:13 | Inpatient (IN) | payer MEDICAID, OTHER ==
[2016-11-07 03:11] LABS: BASO % 0.4 % (0.0-2.0); EOS # 0.2 K/uL (0.0-0.7); EOS % 1.6 % (0.0-4.0); HEMATOCRIT 45.5 % (35.0-51.0); LYMPH # 0.9 K/uL (1.0-4.3); LYMPH % 9.5 % (20.0-40.0); MEAN CELL VOLUME 85.6 fL (80.0-94.0); MEAN CORPUSCULAR HEMOGLOBIN 28.7 pg (27.0-31.0); MEAN CORPUSCULAR HGB CONC 33.6 g/dL (33.0-37.0); MEAN PLATELET VOLUME 8.3 fL (7.2-11.7); MONO # 0.9 K/uL (0.0-0.8); MONO % 9.3 % (0.0-10.0); PLATELET COUNT 198 K/uL (130-400); RED CELL DISTRIBUTION WIDTH 13.8 % (11.5-14.5); WHITE BLOOD COUNT 9.9 K/uL (4.8-10.8)
[2016-11-07 03:27] LABS: ALB/GLOB RATIO 1.2 (1.0-2.1); ALCOHOL SERUM < 10 mg/dl (0-10); ALKALINE PHOSPHATASE 109 U/L (38-126); ALT/SGPT 34 U/L (21-72); AST/SGOT 26 U/L (17-59); BILIRUBIN,TOTAL 1.6 mg/dL (0.2-1.3); BLOOD UREA NITROGEN 23 mg/dL (9-20); CALCIUM 9.5 mg/dl (8.6-10.4); CARBON DIOXIDE 24 mmol/L (22-30); CHLORIDE 100 mmol/L (98-107); GFR AFRICAN-AMERICAN > 60; GLUCOSE,RANDOM 71 mg/dL (75-110); POTASSIUM 3.9 mmol/L (3.6-5.2); SODIUM 140 mmol/L (132-148); TOTAL PROTEIN 7.9 g/dL (6.3-8.3)
[2016-11-07 03:45] LABS: EOSINOPHIL 1 % (0-4); NEUTROPHIL 80 % (50-75); TOTAL CELLS COUNTED 100
--- NOTE | 2016-11-07 04:02 | C.PDOC ---
History Of Present Illness Patient presents to ED c/o feeling depressed, states he has SI and has thoughts of jumping in front of a truck. He denies physical complaints at this time. PMHx of anxiety/depression. Time Seen by Provider: 11/07/16 02:18 Chief Complaint (Nursing): Psychiatric Evaluation History Per: Patient History/Exam Limitations: no limitations Severity: Moderate Associated Symptoms: Depression, Suicidal Thoughts Involuntary Hold By: Emergency Physician Past Medical History Reviewed: Historical Data, Nursing Documentation, Vital Signs Vital Signs: Last Vital Signs Temp 97.8 F 11/07/16 02:25 Pulse 74 11/07/16 06:15 Resp 20 11/07/16 06:15 BP 122/80 11/07/16 06:15 Pulse Ox 100 11/07/16 06:15 - Medical History PMH: Anxiety, Depression - [facility] GROUP PSYCHOTHERAPY (10/20/16) INDIVIDUAL PSYCHOTHERAPY, SUPPORTIVE (10/20/16) MEDICATION MANAGEMENT (10/20/16) MEDS MGMT FOR SUBSTANCE ABUSE TREATMENT, NICOTINE REPLACE (10/20/16) MEDS MGMT FOR SUBSTANCE ABUSE TREATMENT, OTH REPL MED (10/20/16) Family History: States: Diabetes - Social History Hx Tobacco Use: Yes Hx Alcohol Use: No Hx Substance Use: Yes - Immunization History Hx Tetanus Toxoid Vaccination: No Hx Influenza Vaccination: Yes Hx Pneumococcal Vaccination: No Review Of Systems Except As Marked, All Systems Reviewed And Found Negative. Cardiovascular: Negative for: Chest Pain Respiratory: Negative for: Shortness of Breath Gastrointestinal: Negative for: Nausea, Vomiting, Abdominal Pain, Diarrhea Psych: Positive for: Depression, Suicidal ideation Physical Exam - Physical Exam Appears: Well, Non-toxic, Other (flat affect ) Head: Normacephalic Oral Mucosa: Moist Cardiovascular: Rhythm Regular Respiratory: Normal Breath Sounds, No Rales, No Rhonchi, No Wheezing Extremity: Normal ROM Extremity: Bilateral: Atraumatic, Normal Color And Temperature, Normal ROM Neurological/Psych: Oriented x3 Gait: Steady ED Course And Treatment - Laboratory Results Result Diagrams: 11/07/16 03:08 11/07/16 03:08 O2 Sat by Pulse Oximetry: 97 (RA) Pulse Ox Interpretation: Normal Progress Note: Blood work, UA, UDS ordered and reviewed. Patient placed on 1:1 observation. 4:20am - Patient medically cleared. Pending crisis. 6:10AM- Patient accepted for psychiatric admission by Dr. Hurst. Disposition - Disposition Disposition: HOSPITALIZED Disposition Time: 06:12 Condition: STABLE Forms: [facility] (Croatian) - Clinical Impression Clinical Impression: Depression, Cocaine abuse Decision To Admit - Pt Status Changed To: Hospital Disposition Of: Inpatient - Admit Certification Admit to Inpatient:: After my assessment, the patient will require hospitalization for at least two midnights. This is because of the severity of symptoms shown, intensity of services needed, and/or the medical risk in this patient being treated as an outpatient. - InPatient: Physician Admission Certification: I certify that this patient requires 2 or more midnights of care for the following reason:: see notes - . Bed Request Type: Psychiatry Admitting Physician: Rehana Hurst Patient Diagnosis: Depression, Cocaine use with cocaine-induced disorder
[2016-11-07 04:07] LABS: RBC URINE 10 /hpf (0-3); URINE BACTERIA RARE (<OCC); URINE BILIRUBIN NEGATIVE (NEGATIVE); URINE BLOOD 2+ (NEGATIVE); URINE COLOR Yellow (YELLOW); URINE GLUCOSE (UA) NORMAL (Normal); URINE KETONE 2+ mg/dL (NEGATIVE); URINE LEUKOCYTE ESTERASE NEG Leu/uL (Negative); URINE PROTEIN NEGATIVE (NEGATIVE); WBC URINE 2 /hpf (0-5)
[2016-11-07 06:24] VITALS: O2SAT 97
[2016-11-07] MEDS ORDERED: Pneumococcal 23-Valent Vaccine SC ONE (07:50)
--- NOTE | 2016-11-07 08:52 | PCM.BM ---
Treatment Plan Problems - Problems identified on initial assessmt Depression Date Initiated: 11/07/16 Time Initiated: 08:51 Assessment reference: NA Status: Active Priority: 1 Treatment assets and liabiliti Patient Assests: cooperative, self-reliant, ADL independent, negotiates basic needs
--- NOTE | 2016-11-07 08:53 | PCM.BM ---
<ErikosoNorma - Last Filed: 11/07/16 08:52> Treatment Plan Problems - Problems identified on initial assessmt Depression Date Initiated: 11/07/16 Time Initiated: 08:51 Assessment reference: NA Status: Active Priority: 1 Cocaine Abuse Date Initiated: 11/07/16 Time Initiated: 08:52 Assessment reference: NA Status: Active Priority: 2 Treatment assets and liabiliti Patient Assests: cooperative, self-reliant, ADL independent, negotiates basic needs <Arabella Rodriguez - Last Filed: 11/10/16 10:03> Family Contact Family involvement: Family/SO is involved - Goals for Treatment Patient goals for treatment: "I want to go back to work." Discharge/Continuing Care - Education Needs Education Needs: Patient Medication, Patient Coping Skills, Patient Community resources - Discharge Discharge Criteria: No longer exhibiting s/s of withdrawal, Reduction of target symptoms - Treatment Team Participation Discussed with Family/SO: No <LucJajaen - Last Filed: 11/10/16 11:16> - Diagnosis (1) Depression Status: Acute Interventions: 11/10/16 11:16 * Assess/adjust medications daily and /or as needed * See patient on an individual basis 7x/week to assess level of depressive behaviors and stability * Discuss risks, benefits, side effects and alternatives of medications * (2) Cocaine abuse Status: Acute Interventions: 11/10/16 11:16 * Assess 7x/week regarding severity of withdrawal * Educate regarding risks, benefits, side effects and alternatives of medications * Use Motivational Interviewing for abstinence * Use CBT for relapse prevention * Medication management for withdrawal symptoms * Encourage medication assisted treatment *
[2016-11-08] MEDS ORDERED: buPROPion 150 mg/24 Hours XL Tab PO SCH (10:00)
[2016-11-09] MEDS ORDERED: Aluminum Hydroxide/Magnesium Hydroxide Susp (30 mL) PO PRN (04:35)
--- NOTE | 2016-11-09 05:35 | PCM.PSYCH ---
Initial Psychiatric Evaluation - Initial Psychiatric Evaluation Legal Status: Capacity Chief Complaint (in patient's own words): I AMDE PRESSED I CAN'T SLEEP Patient's Reaction to Hospitalization: I KEEPCOMING BACK BECAUSE I KEEMAKING THE SAME MISTAKES History of Present Illness and Precipitating Events: PT IS A 46 YEAR OLD DOMICILED MALE WHO SUFFERS FROM DEPRESSION AND COCAINE USE DISORDER PT STATES THIS IS HIS FIRST HOSPITALIZATION BUT RECORDS INDICATED HE WAS DISCHARGED 11/01/2016 AND SEVERAL WEEKS BEFORE THIS. PT HAS A GOOD APPETITE BUT POOR SLEEP, MOST LIKELY DUE TO THE COCAINE. PT SAID HE HAD NEVER BEEN ON PSYCH MEDS WHICH IS CONTRADICTORY TO AVAILABLE RECORDS. PT WANTS TO END EVERY THING. 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 HE DOES NOT GET ALONG WITH HIS CO=WORKERS. HE WAS IN LAW ENFORCEMENT WAS DISMISSED FOR MISCONDUCT AND SERVED TIMED.FOR MULTIPLE BURGLARIES MOTHER AND FATHER ARE ALIVE PT IS OLDEST IN A SIBSHIP OF 6 WITH 1 BROTHER AND 4 SISTERS , PT DENIES ANY FAMILY PSYCHIATRIC ILLNESS BUT FATHER HAS USED ALCOHOL AND COCAINE PT OVERDOSED ONCE IN ON PERCOCET AND WAS IN [facility]. PT STARTED USING COCAINE AGE 26, PT FINISHED A DEGREE IN SOCIAL SCIENCES PT HAS SACCOIDOSIS AND IS ON STERIOD Current Medications: Active Medications Generic Name Dose Route Start Last Admin Trade Name Freq PRN Reason Stop Dose Admin Acetaminophen 650 mg 11/07/16 09:54 Tylenol 325mg Tab PO Q6 PRN Pain, Mild (1-3) Al Hydrox/Mg Hydrox/Simethicone 30 ml 11/09/16 04:35 Maalox 30 Ml PO Q6H PRN Indigestion / Heartburn Escitalopram Oxalate 20 mg 11/09/16 10:00 Lexapro PO DAILY DINORA Gabapentin 300 mg 11/07/16 18:00 11/08/16 17:30 Neurontin PO 300 mg TID DINORA Administration Hydroxyzine HCl 25 mg 11/07/16 06:39 11/08/16 09:29 Atarax PO 25 mg Q6H PRN Administration Anxiety Prednisone 10 mg 11/08/16 10:00 11/08/16 09:29 Prednisone Tab PO 10 mg DAILY DINORA Administration Trazodone HCl 100 mg 11/07/16 22:00 11/08/16 21:49 Desyrel PO 100 mg HS PRN Administration Sleep Past Psychiatric History - Past Psychiatric History Prior Professional Help: SEE HPI Pertinent Medical Hx (Current Medical&Sleep Prob, Allergies): Allergies Allergy/AdvReac Type Severity Reaction Status Date / Time sulfamethoxazole Allergy Verified 11/07/16 02:30 [From Bactrim] trimethoprim [From Bactrim] Allergy Verified 11/07/16 02:30 seafood Allergy Uncoded 11/07/16 02:30 Escitalopram [Lexapro] 10 mg PO DAILY 14 Days 10/25/16 Gabapentin [Neurontin] 100 mg PO BID 14 Days 10/25/16 traZODone [Desyrel] 50 mg PO HS 14 Days 10/25/16 Escitalopram [Lexapro] 20 mg PO DAILY 14 Days 11/01/16 Gabapentin [Neurontin] 300 mg PO BID 14 Days 11/01/16 traZODone [Desyrel] 100 mg PO HS #14 tab 11/01/16 Review of Systems - Constitutional Constitutional: Malaise - EENT Eyes: UNREMARKABLE Ears: UNREMARKABLE Nose/Mouth/Throat: UNREMARKABLE - Cardiovascular Cardiovascular: UNREMARKABLE - Respiratory Respiratory: UNREMARKABLE - Gastrointestinal Gastrointestinal: UNREMARKABLE - Genitourinary Genitourinary: UNREMARKABLE - Reproductive: Male Reproductive:Male: UNREMARKABLE - Musculoskeletal Musculoskeletal: UNREMARKABLE - Integumentary Integumentary: UNREMARKABLE - Psychiatric Psychiatric: Anxiety, Behavioral Changes, Depression, Difficulty Concentrating, Irritability, Suicidal Ideation - Endocrine Endocrine: UNREMARKABLE - Hematologic/Lymphatic Hematologic: UNREMARKABLE Mental Status Examination - Personal Presentation Personal Presentation: Looks older than stated age - Affect Affect: Constricted - Motor Activity Motor Activity: Calm - Reliability in Providing Information Reliability in Providing Information: Fair - Speech Speech: Organized - Mood Mood: Depressed - Formal Thought Process Formal Thought Process: No Impairment - Obsessions/Compulsions Obsessions: None Compulsions: None - Cognitive Functions Orientation: Person, Place, Situation Sensorium: Alert Attention/Concentration: Easily distracted Abstract Thinking: As evidence by abstract perception of proverbs Estimate of Intelligence: Average Judgement: Intact, as evidence by: Other Memory: Recent intact, as evidence by: Ability to recall events of the day, Remote intact, as evidenced by: Abilit to recall sig. life events - Risk Risk: Suicidal - Strength & Assets Inventory Strength & Assets Inventory: Intelligence, Employment history - Limitations Limitations: Living alone DSM 5 DX - DSM 5 DSM 5 Diagnosis: MAJOR DEPRESSIVE DISORDER- LEXAPRO NEURONTIN CBT ID RECREATIONAL GROUP MILIEU THERAPY SUPPORTIVE PSYCHOTHERAPY COCAINE USE DISORDER SEVERE CBT ID SUPPORTIVE PSYCHOTHERAPY - Recommended/Plan of Treatment Projected ELOS: 7 DAYS Prognosis: FAIR WITH ADHERENCE TO TREATMENT Discharge Plan and Discharge Criteria: NO LONGER SUICIDAL - Smoking Cessation Smoking Cessation Initiated: No
--- NOTE | 2016-11-09 06:02 | PCM.PYCHPN ---
Psychiatric Progress Note - Psychiatric Progress Note Patient seen today, length of contact: 25 MINUTES Patient Chief Complaint: I'M NOT ABLE TO SLEEP. Problems Identified/Issues Discussed: NON-ADHERENCE TO TREATMENT LEADING TO 3 HOSPITALIIZATION IN A LITTLE MORE THAN AMONTH Medical Problems: NOTHING ACUTE Diagnostic Results: REVIEWED DSM 5 Symptoms Update: INSOMNIA AVOLITION Medication Change: No Medical Record Reviewed: Yes Mental Status Examination - Cognitive Function Orientation: Person, Place, Situation, Time Memory: Impaired Attention: Poor Concentration: Poor Association: WNL Fund of Knowledge: WNL - Mood Mood: Depressed - Affect Affect: Constricted - Speech Speech: Appropriate - Formal Thought Process Formal Thought Process: No Impairment - Suicidal Ideation Suicidal Ideation: Yes - Homicidal Ideation Homicidal Ideation: No Goal/Treatment Plan - Goal/Treatment Plan Need for Continued Stay: Severe depression anxiety, Discharge may exacerbated symptoms Progress Toward Problem(s) and Goals/Treatment Plan: MDD LEXAPRO NEURONTIN SUPPORTIVE PSYCHOTHERAPY COCAINE USE DISORDER CBT RI Estimated Date of D/C: 11/12/16 - Smoking Cessation Smoking Cessation Initiated: No
[2016-11-09] MEDS ORDERED: Influenza Virus Vaccine 45 mcg/0.5 ml Syr IM ONE (07:50)
--- NOTE | 2016-11-09 10:43 | PCM.PYCHPN ---
Psychiatric Progress Note - Psychiatric Progress Note Patient seen today, length of contact: 15 MINUTES Patient Chief Complaint: "I'm doing better" Problems Identified/Issues Discussed: Pt is seen, chart reviewed, case discussed with staff. Pt is compliant with medications and reports no side effects. Pt currently has no complaints. Symptoms are improving but needs more time to stabilize. After care discussed. Pt counseled on importance of following up with with psych after D/C to prevent repeated hospitalizations. Pt acknowledges and agrees. Support and psychoeducation given. Medication Change: No Medical Record Reviewed: Yes Mental Status Examination - Cognitive Function Orientation: Person, Place, Situation, Time Memory: Impaired Attention: Poor Concentration: Poor Association: WNL Fund of Knowledge: WNL - Mood Mood: Depressed - Affect Affect: Constricted - Speech Speech: Appropriate - Formal Thought Process Formal Thought Process: No Impairment - Suicidal Ideation Suicidal Ideation: Yes - Homicidal Ideation Homicidal Ideation: No Goal/Treatment Plan - Goal/Treatment Plan Need for Continued Stay: Severe depression anxiety, Discharge may exacerbated symptoms Progress Toward Problem(s) and Goals/Treatment Plan: Major depressive disorder Support and psychoeducation given Attend groups and activites Start Lexapro Continue Neurontin, Atarax, Desyrel Cocaine use disorder Support and psychoeducation given [place] for abstinence and CBT for relapse prevention Estimated Date of D/C: 11/12/16 - Smoking Cessation Smoking Cessation Initiated: No
[2016-11-10 07:57] VITALS: BP 144/62; PULSE 66; RESP 18; TEMP 97.6
--- NOTE | 2016-11-10 10:05 | PCM.PYCHDC ---
Mental Status Examination - Mental Status Examination Orientation: Person, Place, Situation, Time Memory: Intact Mood: Neutral Affect: Constricted Speech: Soft Attention: WNL Concentration: WNL Association: WNL Fund of Knowledge: WNL Formal Thought Process: No Impairment Description of patient's judgement and insight: good, fair Psychotic Thoughts and Behaviors: denies any AVH Suicidal Ideation: No Current Homicidal Ideation?: No Discharge Summary - Discharge Note Reason for Hospitalization: Pt is a 46 year old domiciled male who suffers from depression and cocaine use disorder pt states this is his first hospitalization but records indicated he was discharged 11/01/2016 and several weeks before this. Pt has a good appetite but poor sleep, most likely due to the cocaine. Pt said he had never been on psych meds which is contradictory to available records. Pt wants to end every thing. 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 He does not get along with his coworkers. 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 Mother and father are alive. pt is oldest in a sib ship of 6 with 1 brother and 4 sisters, pt denies any family psychiatric illness but father has used alcohol and cocaine pt overdosed once in 1996 on Percocet and was in [facility]. Pt started using cocaine age 26, pt. finished a degree in social sciences. Pt has Sarcoidosis and is on steroids. Consultations:: List each consultation separately and include: 1. Reason for request. 2. Findings. 3. Follow-up Summary of Hospital Course include:: 1. Description of specific treatment plan utilized for patients during their course of treatmen. 2. Summarize the time- course for resolution of acute symptoms and/or regressed behaviors. 3. Describe issues identified and worked on during hospitalization. 4. Describe medication utilized. 5. Describe medical problems identified and treated. 6. Reassessment of suicide risk Summary of Hospital Course: During the course of his stay, patient (pt) started progressively improving and he no longer remained irritable, depressed, and suicidal. His mood was improved and he started attending groups and meetings and started socializing. Patient denied any feelings of hopelessness, helplessness, and worthlessness, denied any problem with the sleep or appetite, denied suicidal ideation or homicidal ideation. Pt denied any auditory or visual hallucinations. Some changes were made in his current medications and patient was discharged on following medications. He tolerated these medications very well and denied any side effects. CBT and [place] were used. - Final Diagnosis (DSM 5) Condition upon Discharge: STABLE DSM 5: MAJOR DEPRESSIVE DISORDER COCAINE USE DISORDER SEVERE Disposition: HOME/ ROUTINE Follow-up Treatment Plan: Education: Pt was educated and counseled about the risks and benefits of taking and not taking medications. Pt was educated and counseled about the risks of drinking and abusing drugs. Pt was educated and counseled to go to the ER or call 911 if pt develop suicidal ideation or homicidal ideation, worsening of symptoms or severe side effects of the meds. Prescriptions/Medication Reconciliation: Escitalopram [Lexapro] 20 mg PO DAILY #14 tab Gabapentin [Neurontin] 300 mg PO BID 14 Days traZODone [Desyrel] 100 mg PO HS PRN #14 tab PRN Reason: Sleep - Smoking Cessation Smoking Cessation Medication prescribed: No - Antipsychotic Medications Pt discharged on 2 or more routine antipsychotic medications: No
== END 2016-11-10 12:05 | disposition home or self-care (01) | DRG 885 ==
LOC: C.ER 02:13 → SUPCPDRO 02:13 → C.5E 06:12
PROVIDERS: ADMIT Psychiatry & Neurology Psychiatry; ATTEND Psychiatry & Neurology Psychiatry
PROC: HZ52ZZZ Individual Psychotherapy for Substance Abuse Treatment, Cognitive-Behavioral (ICD-10-PCS; principal; 2016-11-07)
PROC: HZ59ZZZ Individual Psychotherapy for Substance Abuse Treatment, Supportive (ICD-10-PCS; 2016-11-07)
DX: F32.89 Other specified depressive episodes (principal); R45.851 Suicidal ideations; F14.10 Cocaine abuse, uncomplicated; F41.8 Other specified anxiety disorders; F17.210 Nicotine dependence, cigarettes, uncomplicated; G47.00 Insomnia, unspecified; D86.9 Sarcoidosis, unspecified

== ENCOUNTER 2016-11-14 00:36 | Inpatient (IN) | payer MEDICAID, OTHER ==
--- NOTE | 2016-11-14 00:58 | C.PDOC ---
History Of Present Illness Patient presents to the ER with a complaint of feeling depressed for the past few days. Patient reports he stopped taking his medications approximately 1 week ago. Patient states he has suicidal ideation with a plan to hang himself; he also notes recent cocaine use. Denies physical complaints at this time. Time Seen by Provider: 11/14/16 00:54 Chief Complaint (Nursing): Psychiatric Evaluation History Per: Patient History/Exam Limitations: no limitations Onset/Duration Of Symptoms: Days Current Symptoms Are (Timing): Still Present Modifying Factor(s): Cocaine Severity: None Pain Scale Rating Of: 0 Associated Symptoms: Depression, Suicidal Thoughts, Suicidal Plan Involuntary Hold By: None Recent travel outside of the [place]: No Past Medical History Reviewed: Historical Data, Nursing Documentation, Vital Signs Vital Signs: Last Vital Signs Temp 97.6 F 11/14/16 00:46 Pulse 79 11/14/16 00:46 Resp 18 11/14/16 00:46 BP 121/82 11/14/16 00:46 Pulse Ox 96 11/14/16 01:34 - Medical History PMH: Anxiety, Depression Surgical History: No Surg Hx - [facility] GROUP PSYCHOTHERAPY (10/20/16) INDIV PSYCHOTHERAPY FOR SUBSTANCE ABUSE TREATMENT, SUPPORT (11/07/16) INDIV PSYCHOTHERAPY FOR SUBSTANCE ABUSE, COGNITIV BEHAVIORAL (11/07/16) INDIVIDUAL PSYCHOTHERAPY, SUPPORTIVE (10/20/16) MEDICATION MANAGEMENT (10/20/16) MEDS MGMT FOR SUBSTANCE ABUSE TREATMENT, NICOTINE REPLACE (10/20/16) MEDS MGMT FOR SUBSTANCE ABUSE TREATMENT, OTH REPL MED (10/20/16) Family History: States: Unknown Family Hx, Diabetes - Social History Hx Tobacco Use: Yes Hx Alcohol Use: Yes Hx Substance Use: Yes - Immunization History Hx Tetanus Toxoid Vaccination: No Hx Influenza Vaccination: Yes Hx Pneumococcal Vaccination: No Review Of Systems Constitutional: Negative for: Fever, Chills Eyes: Negative for: Vision Change Cardiovascular: Negative for: Chest Pain Respiratory: Negative for: Shortness of Breath Gastrointestinal: Negative for: Nausea, Vomiting, Diarrhea Musculoskeletal: Negative for: Neck Pain Skin: Negative for: Rash Neurological: Negative for: Weakness Psych: Positive for: Depression Physical Exam - Physical Exam Appears: Non-toxic Skin: Warm, Dry Head: Normacephalic Eye(s): bilateral: Normal Inspection Oral Mucosa: Moist Neck: Supple Chest: Symmetrical Cardiovascular: Rhythm Regular Respiratory: No Rales, No Rhonchi, No Wheezing Gastrointestinal/Abdominal: Soft, No Tenderness Back: No CVA Tenderness Extremity: Normal ROM Extremity: Bilateral: Atraumatic, Normal Color And Temperature Neurological/Psych: Oriented x3, Normal Speech, Normal Cognition Gait: Steady ED Course And Treatment - Laboratory Results Result Diagrams: 11/14/16 01:08 11/14/16 01:08 O2 Sat by Pulse Oximetry: 96 (Room air) Pulse Ox Interpretation: Normal Progress Note: Blood work and urinalysis ordered. Disposition Discussed With : Aurelio Young Comment: accepted the pt on his service and took over the care at 2:55 AM Doctor Will See Patient In The: Hospital Counseled Patient/Family Regarding: Studies Performed, Diagnosis - Disposition Disposition: HOSPITALIZED Disposition Time: 00:58 Condition: FAIR Forms: [facility] (Tajik) - Clinical Impression Clinical Impression: Depression, Cocaine abuse - Scribe Statement The provider has reviewed the documentation as recorded by the Scribpatricia Bethea All medical record entries made by the Scribe were at my direction and personally dictated by me. I have reviewed the chart and agree that the record accurately reflects my personal performance of the history, physical exam, medical decision making, and the department course for this patient. I have also personally directed, reviewed, and agree with the discharge instructions and disposition. Decision To Admit - Pt Status Changed To: Hospital Disposition Of: Inpatient - Admit Certification Admit to Inpatient:: After my assessment, the patient will require hospitalization for at least two midnights. This is because of the severity of symptoms shown, intensity of services needed, and/or the medical risk in this patient being treated as an outpatient. - InPatient: Physician Admission Certification: I certify that this patient requires 2 or more midnights of care for the following reason:: After my assessment, the patient will require hospitalization for at least two midnights. This is because of the severity of symptoms shown, intensity of services needed, and/or the medical risk in this patient being treated as an outpatient. - . Bed Request Type: Psychiatry Admitting Physician: Aurelio Young Patient Diagnosis: Depression, Cocaine abuse
[2016-11-14 01:19] LABS: BASO # 0.1 K/uL (0.0-0.2); BASO % 0.6 % (0.0-2.0); EOS # 0.2 K/uL (0.0-0.7); EOS % 2.5 % (0.0-4.0); HEMATOCRIT 46.2 % (35.0-51.0); LYMPH # 1.3 K/uL (1.0-4.3); LYMPH % 14.5 % (20.0-40.0); MEAN CELL VOLUME 85.1 fL (80.0-94.0); MEAN CORPUSCULAR HEMOGLOBIN 28.4 pg (27.0-31.0); MEAN CORPUSCULAR HGB CONC 33.4 g/dL (33.0-37.0); MEAN PLATELET VOLUME 8.8 fL (7.2-11.7); MONO # 1.1 K/uL (0.0-0.8); MONO % 11.6 % (0.0-10.0); RED CELL DISTRIBUTION WIDTH 13.4 % (11.5-14.5); WHITE BLOOD COUNT 9.3 K/uL (4.8-10.8)
[2016-11-14 01:32] LABS: ALB/GLOB RATIO 1.3 (1.0-2.1); ALCOHOL SERUM < 10 mg/dl (0-10); ALKALINE PHOSPHATASE 104 U/L (38-126); ALT/SGPT 25 U/L (21-72); AST/SGOT 25 U/L (17-59); BILIRUBIN,TOTAL 1.2 mg/dL (0.2-1.3); BLOOD UREA NITROGEN 23 mg/dL (9-20); CALCIUM 9.7 mg/dl (8.6-10.4); CARBON DIOXIDE 25 mmol/L (22-30); CHLORIDE 102 mmol/L (98-107); GFR AFRICAN-AMERICAN > 60; GLUCOSE,RANDOM 86 mg/dL (75-110); POTASSIUM 3.9 mmol/L (3.6-5.2); SODIUM 142 mmol/L (132-148); TOTAL PROTEIN 7.8 g/dL (6.3-8.3)
[2016-11-14 01:43] LABS: RBC URINE 3 /hpf (0-3); URINE BILIRUBIN NEGATIVE (NEGATIVE); URINE BLOOD NEGATIVE (NEGATIVE); URINE COLOR Amber (YELLOW); URINE GLUCOSE (UA) NORMAL (Normal); URINE KETONE TRACE mg/dL (NEGATIVE); URINE LEUKOCYTE ESTERASE NEG Leu/uL (Negative); URINE PROTEIN NEGATIVE (NEGATIVE); WBC URINE 1 /hpf (0-5)
--- NOTE | 2016-11-14 03:57 | PCM.BM ---
<Miles Vela - Last Filed: 11/14/16 03:54> Treatment Plan Problems - Problems identified on initial assessmt Depression Date Initiated: 11/14/16 Time Initiated: 03:55 Assessment reference: NA Status: Active Suicidal Ideation Date Initiated: 11/14/16 Time Initiated: 03:55 Assessment reference: NA Status: Active Substance Abuse Date Initiated: 11/14/16 Time Initiated: 03:56 Assessment reference: NA Status: Active (Abusing Cocaine/ MJ and alcohol) Treatment assets and liabiliti Patient Assests: cooperative, self-reliant, ADL independent, negotiates basic needs Patient Liabilities: live alone, financial problems, poor support system, substance abuse, legal issue - Milieu Protocol Maintain good personal hygiene: daily Encourage regular showers, daily Remind patient to perform daily oral care, daily Assist patient to perform ADL's Maintain personal safety: every shift Educate patient to report safety concerns to staff, every shift Monitor environment for contraband/sharps Medication safety: Monitor for expected outcome, potential side effects: every shift, Assess barriers to learning: every shift, Assess readiness for medication education: every shift <James Calle - Last Filed: 11/15/16 11:05> - Diagnosis (1) Major depressive disorder, recurrent severe without psychotic features Status: Acute Interventions: 11/15/16 11:05 * Assess/adjust medications daily and /or as needed * See patient on an individual basis 7x/week to assess level of depressed behaviors and stability * Discuss risks, benefits, side effects and alternatives of medications * (2) Cocaine abuse Status: Acute Interventions: 11/15/16 11:05 * Assess 7x/week regarding severity of withdrawal * Educate regarding risks, benefits, side effects and alternatives of medications * Use Motivational Interviewing for abstinence * Use CBT for relapse prevention * Medication management for withdrawal symptoms * Encourage medication assisted treatment * <Arabella Rodriguez - Last Filed: 11/15/16 11:17> Family Contact Family involvement: Family/SO is involved Family contact: Patient declines to allow family contact at present - Goals for Treatment Patient goals for treatment: "I want to go to the [facility]." Discharge/Continuing Care - Education Needs Education Needs: Patient Medication, Patient Coping Skills, Patient Placement options, Patient Community resources - Discharge Discharge Criteria: Tolerates medication w/o severe side effects, Free of Suicidal thoughts, Reduction of target symptoms Discharge to:: Retirement - Treatment Team Participation Discussed with Family/SO: No Was Patient/Family/SO present at Treatment Team Meeting: Yes
--- NOTE | 2016-11-14 18:43 | PCM.PSYCH ---
Initial Psychiatric Evaluation - Initial Psychiatric Evaluation Type of Admission: Voluntary Legal Status: Capacity Chief Complaint (in patient's own words): "Not well" History of Present Illness and Precipitating Events: This is a 46 yo LM, single, unemployed, homeless He is known to us from 3 back to back admissions last 2 months. He put in a 48- hr notice last time He is back again with similar presentation: non-compliant with meds, used cocaine and feeling down, depressed and suicidal. No intent or plan here, is future oriented, wants intensive treatment Denies bakari, psychosis Denies other drug use but MJ. Reports many depressive sxs but is willing and in agreement with treatment Past psych hx: Several admissions with depression and suicide attempt Family psych hx: Denies Medical hx: Sarcoidosis, untreated Past Psychiatric History - Past Psychiatric History Previous Treatment History: Inpatient Pertinent Medical Hx (Current Medical&Sleep Prob, Allergies): Allergies Allergy/AdvReac Type Severity Reaction Status Date / Time sulfamethoxazole Allergy Verified 11/14/16 00:54 [From Bactrim] trimethoprim [From Bactrim] Allergy Verified 11/14/16 00:54 seafood Allergy Uncoded 11/14/16 00:54 Escitalopram [Lexapro] 10 mg PO DAILY 14 Days 10/25/16 traZODone [Desyrel] 50 mg PO HS 14 Days 10/25/16 Escitalopram [Lexapro] 20 mg PO DAILY 14 Days 11/01/16 Gabapentin [Neurontin] 300 mg PO BID 14 Days 11/01/16 traZODone [Desyrel] 100 mg PO HS #14 tab 11/01/16 Review of Systems - Neurological Neurological: UNREMARKABLE - Psychiatric Psychiatric: Abnormal Sleep Pattern, Anhedonia, Anxiety, Depression, Difficulty Concentrating, Irritability, Mood Swings. absent: Hallucinations, Homicidal Ideation, Paranoia, Suicidal Ideation Mental Status Examination - Personal Presentation Personal Presentation: Dressed appropriate to season - Affect Affect: Constricted - Motor Activity Motor Activity: Calm - Reliability in Providing Information Reliability in Providing Information: Fair - Speech Speech: Organized - Mood Mood: Depressed, Anxious - Formal Thought Process Formal Thought Process: No Impairment - Cognitive Functions Orientation: Person, Place, Situation, Time Sensorium: Alert Attention/Concentration: Attentive Estimate of Intelligence: Average Judgement: Intact, as evidence by: Insight regarding need for hospitalization Memory: Recent intact, as evidence by: Ability to recall events of the day, Remote intact, as evidenced by: Abilit to recall sig. life events - Risk Risk: Withdrawal, Diminished functioning - Strength & Assets Inventory Strength & Assets Inventory: Cooperative - Limitations Limitations: Living alone, Other DSM 5 DX - DSM 5 DSM 5 Diagnosis: Major depression, recurrent, severe Cocaine use d/o - severe - Recommended/Plan of Treatment Treatment Recommendations and Plan of Treatment: Start Lexapro again Gabpentin for anxiety and cocaine use Trazodone and other prn meds Attend groups and activities Individual therapy Psychoeducation and support Encourage compliance with meds and after care Refer to outpatient program Teach healthy lifestyle methods, i.e. diet, exercise, meditation Smoking cessation 32 min Projected ELOS: 4 days Prognosis: good with treatment
--- NOTE | 2016-11-15 09:54 | PCM.PYCHPN ---
Psychiatric Progress Note - Psychiatric Progress Note Patient seen today, length of contact: 15 min. Patient Chief Complaint: "I wanted to kill myself." Problems Identified/Issues Discussed: Pt. is seen, chart reviewed, case discussed with staff. Pt. reports he is back to the hospital b/c he had suicidal ideation and also relapsed on cocaine (20 mg). Pt. states that the suicidal ideation comes from the stress that he has from work. Pt. just sleeps throughout the day. Pt. is compliant with medications and reports no side-effects. Symptoms are improving, but needs more time to stabilize. After care discussed, support and psychoeducation given. Medication Change: Yes (Prednisone 10 mg, Lexapro 10 mg) Medical Record Reviewed: Yes Mental Status Examination - Cognitive Function Orientation: Person, Place, Situation, Time Memory: Intact Attention: WNL Concentration: Poor Association: WNL Fund of Knowledge: Poor - Mood Mood: Depressed, Anxious - Affect Affect: Constricted - Speech Speech: Appropriate - Formal Thought Process Formal Thought Process: No Impairment - Suicidal Ideation Suicidal Ideation: Yes - Homicidal Ideation Homicidal Ideation: No Goal/Treatment Plan - Goal/Treatment Plan Need for Continued Stay: Remain at risks for inpatient hospitalization, Severe depression anxiety, Discharge may exacerbated symptoms, Severe functional impairment Progress Toward Problem(s) and Goals/Treatment Plan: Major depression, recurrent, severe Cocaine use d/o-severe Lexapro 10 mg PO DAILY Gapapentin 300 mg PO BID for anxiety and cocaine use Trazodone and other prn meds Attend groups and activities Individual therapy Psychoeducation and support Encourage compliance with meds and after care Refer to outpatient program Teach healthy lifestyle methods, i.e. diet, exercise, meditation Smoking cessation - Smoking Cessation Smoking Cessation Initiated: Yes
--- NOTE | 2016-11-16 10:02 | PCM.PYCHPN ---
Psychiatric Progress Note - Psychiatric Progress Note Patient seen today, length of contact: 15 min. Patient Chief Complaint: "I wanted to kill myself." Problems Identified/Issues Discussed: Pt. is seen, chart reviewed, case discussed with staff. Pt. reports he is back to the hospital b/c he had suicidal ideation and also relapsed on cocaine (20 mg). Pt. states that the suicidal ideation comes from the stress that he has from work. Pt. remained isolated and wthdrawn. Pt. is compliant with medications and reports no side-effects. Symptoms are improving, but needs more time to stabilize. After care discussed, support and psychoeducation given. Medication Change: Yes (increase Lexapro) Medical Record Reviewed: Yes Mental Status Examination - Cognitive Function Orientation: Person, Place, Situation, Time Memory: Intact Attention: WNL Concentration: Poor Association: WNL Fund of Knowledge: Poor - Mood Mood: Depressed, Anxious - Affect Affect: Constricted - Speech Speech: Appropriate - Formal Thought Process Formal Thought Process: No Impairment - Suicidal Ideation Suicidal Ideation: No - Homicidal Ideation Homicidal Ideation: No Goal/Treatment Plan - Goal/Treatment Plan Need for Continued Stay: Remain at risks for inpatient hospitalization, Severe depression anxiety, Discharge may exacerbated symptoms, Severe functional impairment Progress Toward Problem(s) and Goals/Treatment Plan: Major depression, recurrent, severe Cocaine use d/o-severe Lexapro 20 mg PO DAILY Gapapentin 300 mg PO BID for anxiety and cocaine use Trazodone and other prn meds Attend groups and activities Individual therapy Psychoeducation and support Encourage compliance with meds and after care Refer to outpatient program Teach healthy lifestyle methods, i.e. diet, exercise, meditation Smoking cessation - Smoking Cessation Smoking Cessation Initiated: No
--- NOTE | 2016-11-17 11:14 | PCM.PYCHPN ---
Psychiatric Progress Note - Psychiatric Progress Note Patient seen today, length of contact: 15 min. Patient Chief Complaint: "I wanted to kill myself." Problems Identified/Issues Discussed: Pt. is seen, chart reviewed, case discussed with staff. Pt. reports some improvement in his mood but remained isolated and withdrawn. He reports improvement in his sleep and appetite. He also reports improvement in his suicidal ideation. Pt. is compliant with medications and reports no side-effects. Symptoms are improving, but needs more time to stabilize. After care discussed, support and psychoeducation given. Medication Change: Yes (increase Lexapro) Medical Record Reviewed: Yes Mental Status Examination - Cognitive Function Orientation: Person, Place, Situation, Time Memory: Intact Attention: WNL Concentration: Poor Association: WNL Fund of Knowledge: Poor - Mood Mood: Depressed, Anxious - Affect Affect: Constricted - Speech Speech: Appropriate - Formal Thought Process Formal Thought Process: No Impairment - Suicidal Ideation Suicidal Ideation: No - Homicidal Ideation Homicidal Ideation: No Goal/Treatment Plan - Goal/Treatment Plan Need for Continued Stay: Remain at risks for inpatient hospitalization, Severe depression anxiety, Discharge may exacerbated symptoms, Severe functional impairment Progress Toward Problem(s) and Goals/Treatment Plan: Major depression, recurrent, severe Cocaine use d/o-severe Lexapro 20 mg PO DAILY Gapapentin 300 mg PO BID for anxiety and cocaine use Trazodone and other prn meds Attend groups and activities Individual therapy Psychoeducation and support Encourage compliance with meds and after care Refer to outpatient program Teach healthy lifestyle methods, i.e. diet, exercise, meditation Smoking cessation - Smoking Cessation Smoking Cessation Initiated: No
--- NOTE | 2016-11-18 09:58 | PCM.PYCHPN ---
Psychiatric Progress Note - Psychiatric Progress Note Patient seen today, length of contact: 15 min. Patient Chief Complaint: "I am feeling little better." Problems Identified/Issues Discussed: Pt. is seen, chart reviewed, case discussed with staff. Staff reports that pt is showing some improvement in his mood but he remained isolated and withdrawn. He also reports improvement in his suicidal ideation. He is still craving for the drugs. Pt. is compliant with medications and reports no side-effects. He wants to go to the rehab after discharge. Symptoms are improving, but needs more time to stabilize. After care discussed, support and psychoeducation given. Medication Change: Yes (increase Lexapro) Medical Record Reviewed: Yes Mental Status Examination - Cognitive Function Orientation: Person, Place, Situation, Time Memory: Intact Attention: WNL Concentration: Poor Association: WNL Fund of Knowledge: Poor - Mood Mood: Depressed, Anxious - Affect Affect: Constricted - Speech Speech: Appropriate - Formal Thought Process Formal Thought Process: No Impairment - Suicidal Ideation Suicidal Ideation: No - Homicidal Ideation Homicidal Ideation: No Goal/Treatment Plan - Goal/Treatment Plan Need for Continued Stay: Remain at risks for inpatient hospitalization, Severe depression anxiety, Discharge may exacerbated symptoms, Severe functional impairment Progress Toward Problem(s) and Goals/Treatment Plan: Major depression, recurrent, severe Cocaine use d/o-severe Lexapro 20 mg PO DAILY Gapapentin 300 mg PO BID for anxiety and cocaine use Trazodone and other prn meds Attend groups and activities Individual therapy Psychoeducation and support Encourage compliance with meds and after care Refer to outpatient program Teach healthy lifestyle methods, i.e. diet, exercise, meditation Smoking cessation - Smoking Cessation Smoking Cessation Initiated: No
[2016-11-20 07:13] VITALS: O2SAT 98
--- NOTE | 2016-11-20 11:12 | PCM.PYCHPN ---
Psychiatric Progress Note - Psychiatric Progress Note Patient seen today, length of contact: 15 min. Patient Chief Complaint: I am feeling much better Problems Identified/Issues Discussed: Pt. is seen, chart reviewed, case discussed with staff. Pt report improvement in his mood and depressive symptoms. He denies any SI/HI. Pt reports he is calling different programs and wants to go to the inpt rehab. Pt. is compliant with medications and reports no side-effects. Symptoms are improving, but needs more time to stabilize. After care discussed, support and psychoeducation given. Medication Change: No Medical Record Reviewed: Yes Mental Status Examination - Cognitive Function Orientation: Person, Place, Situation, Time Memory: Intact Attention: WNL Concentration: WNL Association: WNL Fund of Knowledge: Poor - Mood Mood: Anxious - Affect Affect: Constricted - Speech Speech: Appropriate, Soft - Formal Thought Process Formal Thought Process: No Impairment - Suicidal Ideation Suicidal Ideation: No - Homicidal Ideation Homicidal Ideation: No Goal/Treatment Plan - Goal/Treatment Plan Need for Continued Stay: Remain at risks for inpatient hospitalization, Severe depression anxiety, Discharge may exacerbated symptoms, Severe functional impairment Progress Toward Problem(s) and Goals/Treatment Plan: Major depression, recurrent, severe Cocaine use d/o-severe Lexapro 20 mg PO DAILY Gapapentin 300 mg PO BID for anxiety and cocaine use Trazodone and other prn meds Attend groups and activities Individual therapy Psychoeducation and support Encourage compliance with meds and after care Refer to outpatient program Teach healthy lifestyle methods, i.e. diet, exercise, meditation Smoking cessation - Smoking Cessation Smoking Cessation Initiated: No
--- NOTE | 2016-11-20 11:13 | PCM.PYCHPN ---
Psychiatric Progress Note - Psychiatric Progress Note Patient seen today, length of contact: 15 min. Patient Chief Complaint: I am feeling little better Problems Identified/Issues Discussed: Pt. is seen, chart reviewed, case discussed with staff. Staff reports that pt is calling different programs and wants to go to the inpt rehab. He report improvement in his mood and denies any SI/HI. Pt. is compliant with medications and reports no side-effects. Symptoms are improving, but needs more time to stabilize. After care discussed, support and psychoeducation given. Medication Change: Yes (increase Lexapro) Medical Record Reviewed: Yes Mental Status Examination - Cognitive Function Orientation: Person, Place, Situation, Time Memory: Intact Attention: WNL Concentration: Poor Association: WNL Fund of Knowledge: Poor - Mood Mood: Depressed, Anxious - Affect Affect: Constricted - Speech Speech: Appropriate - Formal Thought Process Formal Thought Process: No Impairment - Suicidal Ideation Suicidal Ideation: No - Homicidal Ideation Homicidal Ideation: No Goal/Treatment Plan - Goal/Treatment Plan Need for Continued Stay: Remain at risks for inpatient hospitalization, Severe depression anxiety, Discharge may exacerbated symptoms, Severe functional impairment Progress Toward Problem(s) and Goals/Treatment Plan: Major depression, recurrent, severe Cocaine use d/o-severe Lexapro 20 mg PO DAILY Gapapentin 300 mg PO BID for anxiety and cocaine use Trazodone and other prn meds Attend groups and activities Individual therapy Psychoeducation and support Encourage compliance with meds and after care Refer to outpatient program Teach healthy lifestyle methods, i.e. diet, exercise, meditation Smoking cessation - Smoking Cessation Smoking Cessation Initiated: No
--- NOTE | 2016-11-21 13:46 | PCM.PYCHPN ---
Psychiatric Progress Note - Psychiatric Progress Note Patient seen today, length of contact: 15 min. Patient Chief Complaint: I am doing much better. Problems Identified/Issues Discussed: Pt. is seen, chart reviewed, case discussed with staff. Pt reports that he wants to leave tomorrow. He reports improvement in his mood and depressive symptoms. He denies any SI/HI. Pt. is compliant with medications and denies any side-effects. Symptoms are improving, but needs more time to stabilize. After care discussed, support and psychoeducation given. Medication Change: No Medical Record Reviewed: Yes Mental Status Examination - Cognitive Function Orientation: Person, Place, Situation, Time Memory: Intact Attention: WNL Concentration: WNL Association: WNL Fund of Knowledge: WNL - Mood Mood: Anxious - Affect Affect: Constricted - Speech Speech: Appropriate, Soft - Formal Thought Process Formal Thought Process: No Impairment - Suicidal Ideation Suicidal Ideation: No - Homicidal Ideation Homicidal Ideation: No Goal/Treatment Plan - Goal/Treatment Plan Need for Continued Stay: Remain at risks for inpatient hospitalization, Severe depression anxiety, Discharge may exacerbated symptoms, Severe functional impairment Progress Toward Problem(s) and Goals/Treatment Plan: Major depression, recurrent, severe Cocaine use d/o-severe Lexapro 20 mg PO DAILY Gapapentin 300 mg PO BID for anxiety and cocaine use Trazodone and other prn meds Attend groups and activities Individual therapy Psychoeducation and support Encourage compliance with meds and after care Refer to outpatient program Teach healthy lifestyle methods, i.e. diet, exercise, meditation Smoking cessation - Smoking Cessation Smoking Cessation Initiated: No
[2016-11-22 09:25] VITALS: BP 105/52; PULSE 73; RESP 16; TEMP 97.9
--- NOTE | 2016-11-22 10:03 | PCM.PYCHDC ---
Mental Status Examination - Mental Status Examination Orientation: Person, Place, Situation, Time Memory: Intact Mood: Neutral Affect: Constricted Speech: Soft Attention: WNL Concentration: WNL Association: WNL Fund of Knowledge: WNL Formal Thought Process: No Impairment Description of patient's judgement and insight: good, fair Psychotic Thoughts and Behaviors: denies any AVH Suicidal Ideation: No Current Homicidal Ideation?: No Discharge Summary - Discharge Note Reason for Hospitalization: This is a 46 yo LM, single, unemployed, homeless He is known to us from 3 back to back admissions last 2 months. He put in a 48- hr notice last time He is back again with similar presentation: non-compliant with meds, used cocaine and feeling down, depressed and suicidal. No intent or plan here, is future oriented, wants intensive treatment Denies bakari, psychosis Denies other drug use but MJ. Reports many depressive sxs but is willing and in agreement with treatment Past psych hx: Several admissions with depression and suicide attempt Consultations:: List each consultation separately and include: 1. Reason for request. 2. Findings. 3. Follow-up Summary of Hospital Course include:: 1. Description of specific treatment plan utilized for patients during their course of treatmen. 2. Summarize the time- course for resolution of acute symptoms and/or regressed behaviors. 3. Describe issues identified and worked on during hospitalization. 4. Describe medication utilized. 5. Describe medical problems identified and treated. 6. Reassessment of suicide risk Summary of Hospital Course: During the course of his stay, patient (pt) started progressively improving and he no longer remained anxious and depressed. He started attending groups and meetings and started socializing. He denied any feelings of hopelessness, helplessness, and worthlessness, denied any problem with the sleep or appetite, denied suicidal ideation or homicidal ideation. Pt denied any auditory or visual hallucinations. Patient remained calm and cooperative and remained compliant with the medications. Patient tolerated the medications very well and denied any side effects. - Diagnosis (1) Major depressive disorder, recurrent severe without psychotic features Status: Acute (2) Cocaine abuse Status: Acute - Final Diagnosis (DSM 5) Condition upon Discharge: FAIR DSM 5: Major depression, recurrent, moderate Cocaine use d/o-severe Disposition: HOME/ ROUTINE Follow-up Treatment Plan: Follow-up Treatment Plan: Education: Pt was educated and counseled about the risks and benefits of taking and not taking medications. Pt was educated and counseled about the risks of drinking and abusing drugs. Pt was educated and counseled to go to the ER or call 911 if pt develop suicidal ideation or homicidal ideation, worsening of symptoms or severe side effects of the meds. Prescriptions/Medication Reconciliation: Escitalopram [Lexapro] 20 mg PO DAILY #30 tab Gabapentin [Neurontin] 300 mg PO BID #60 cap predniSONE [predniSONE Tab] 10 mg PO DAILY #30 tab traZODone [Desyrel] 100 mg PO HS #30 tab - Smoking Cessation Smoking Cessation Medication prescribed: No - Antipsychotic Medications Pt discharged on 2 or more routine antipsychotic medications: No
== END 2016-11-22 12:35 | disposition home or self-care (01) | DRG 885 ==
LOC: C.ER 00:36 → C.5E 02:56
PROVIDERS: ADMIT Psychiatry & Neurology Psychiatry; ATTEND Psychiatry & Neurology Psychiatry
PROC: GZ3ZZZZ Medication Management (ICD-10-PCS; principal; 2016-11-14)
PROC: GZHZZZZ Group Psychotherapy (ICD-10-PCS; 2016-11-14)
PROC: GZ56ZZZ Individual Psychotherapy, Supportive (ICD-10-PCS; 2016-11-14)
DX: F33.2 Major depressive disorder, recurrent severe without psychotic features (principal); R45.851 Suicidal ideations; F14.10 Cocaine abuse, uncomplicated; F17.200 Nicotine dependence, unspecified, uncomplicated; F41.9 Anxiety disorder, unspecified; D86.9 Sarcoidosis, unspecified; Z91.14 Patient's other noncompliance with medication regimen; Z59.0 Homelessness; Z79.899 Other long term (current) drug therapy

== ENCOUNTER 2016-11-23 14:47 | Emergency (ER) | payer MEDICAID, OTHER ==
[2016-11-23 14:56] VITALS: RESP 20
--- NOTE | 2016-11-23 15:14 | C.PDOC ---
History Of Present Illness Patient is a 46 year old male, with past medical history of depression and substance abuse, presents to Emergency Department for evaluation of depression, and suicidal ideation. Pt states, "I want to kill myself". Patient has been evaluated multiple times in the past here for suicidal ideation with plans to overdose on pills, to cut or hang himself. Pt was discharged by Dr. Calle from psych unit yesterday. Otherwise, pt denies any physical complaints at this time. Time Seen by Provider: 11/23/16 15:01 Chief Complaint (Nursing): Psychiatric Evaluation History Per: Patient History/Exam Limitations: no limitations Onset/Duration Of Symptoms: Gradual Current Symptoms Are (Timing): Still Present Modifying Factor(s): None Severity: None Pain Scale Rating Of: 0 Associated Symptoms: Depression, Suicidal Thoughts, Suicidal Plan Involuntary Hold By: None Recent travel outside of the [place]: No Additional History Per: Prior Records Past Medical History Reviewed: Historical Data, Nursing Documentation, Vital Signs Vital Signs: Last Vital Signs Temp 97.7 F 11/23/16 16:49 Pulse 85 11/23/16 16:49 Resp 20 11/23/16 16:49 BP 120/78 11/23/16 16:49 Pulse Ox 98 11/23/16 16:49 - Medical History PMH: Anxiety, Depression, Pneumothorax (L lung) Denies: HTN (Patient denied) - [facility] Procedures GROUP PSYCHOTHERAPY (11/14/16) INDIV PSYCHOTHERAPY FOR SUBSTANCE ABUSE TREATMENT, SUPPORT (11/07/16) INDIV PSYCHOTHERAPY FOR SUBSTANCE ABUSE, COGNITIV BEHAVIORAL (11/07/16) INDIVIDUAL PSYCHOTHERAPY, SUPPORTIVE (11/14/16) MEDICATION MANAGEMENT (11/14/16) MEDS MGMT FOR SUBSTANCE ABUSE TREATMENT, NICOTINE REPLACE (10/20/16) MEDS MGMT FOR SUBSTANCE ABUSE TREATMENT, OTH REPL MED (10/20/16) Family History: States: Diabetes - Social History Hx Tobacco Use: Yes Hx Alcohol Use: No Hx Substance Use: Yes - Immunization History Hx Tetanus Toxoid Vaccination: Yes Hx Influenza Vaccination: No Hx Pneumococcal Vaccination: No Review Of Systems Except As Marked, All Systems Reviewed And Found Negative. Constitutional: Negative for: Fever, Chills Cardiovascular: Negative for: Chest Pain, Orthopnea Respiratory: Negative for: Cough, Shortness of Breath Gastrointestinal: Negative for: Nausea, Vomiting, Abdominal Pain Musculoskeletal: Negative for: Neck Pain, Back Pain Skin: Negative for: Rash, Bruising Neurological: Negative for: Numbness, Headache, Dizziness Psych: Positive for: Depression, Suicidal ideation Physical Exam - Physical Exam Appears: Non-toxic, No Acute Distress Skin: Normal Color, Warm, Dry, No Rash Head: Atraumatic, Normacephalic Eye(s): bilateral: Normal Inspection, EOMI Nose: Normal Oral Mucosa: Moist Neck: Normal ROM, Supple Chest: Symmetrical Cardiovascular: Rhythm Regular, No Murmur Respiratory: Normal Breath Sounds, No Rales, No Rhonchi, No Wheezing Gastrointestinal/Abdominal: Soft, No Tenderness Back: No CVA Tenderness Extremity: Normal ROM, No Pedal Edema, No Deformity Neurological/Psych: Oriented x3, Normal Speech, Normal Cognition ED Course And Treatment O2 Sat by Pulse Oximetry: 95 (on RA) Pulse Ox Interpretation: Normal Medical Decision Making Medical Decision Making: Blood work, UA, EKG, CXR ordered and reviewed. cue worker was notified. Dr. Calle evaluated patient at bedside, and states there are no signs of depression, or suicidal risk, and that pt can be discharged home with instructions to follow up outpatient. Disposition Discussed With : James Calle Counseled Patient/Family Regarding: Diagnosis, Need For Followup - Disposition Disposition: HOME/ ROUTINE Disposition Time: 16:29 Condition: STABLE Instructions: Depression (ED) Forms: General Discharge Instructions - POA Present On Arrival: None - Clinical Impression Clinical Impression: Depression, Cocaine abuse - Scribe Statement The provider has reviewed the documentation as recorded by the Cayden Ro All medical record entries made by the Balaibpatricia were at my direction and personally dictated by me. I have reviewed the chart and agree that the record accurately reflects my personal performance of the history, physical exam, medical decision making, and the department course for this patient. I have also personally directed, reviewed, and agree with the discharge instructions and disposition.
--- NOTE | 2016-11-23 16:15 | RAD ---
HISTORY: Detox/Psy COMPARISON: None available. TECHNIQUE: Chest, one view. FINDINGS: Examination limited by habitus. LUNGS: No focal consolidation. Please note that chest x-ray has limited sensitivity for the detection of pulmonary masses. PLEURA: No significant pleural effusion identified. No definite pneumothorax . CARDIOVASCULAR: Heart size appears within normal limits. OSSEOUS STRUCTURES: No acute osseous abnormality identified. VISUALIZED UPPER ABDOMEN: Unremarkable. OTHER FINDINGS: None. IMPRESSION: No focal consolidation, significant pleural effusion, or definite pneumothorax identified.
[2016-11-23 16:50] VITALS: BP 120/78; PULSE 85; TEMP 97.7
--- NOTE | 2016-11-23 16:59 | PCM.PSYCH ---
Initial Psychiatric Evaluation - Initial Psychiatric Evaluation Type of Admission: Voluntary Legal Status: Capacity Chief Complaint (in patient's own words): I was feeling anxious and depressed. History of Present Illness and Precipitating Events: This is a 34 years old HM, who lives alone, currently unemployed, came to the ED because of depression and suicidal ideation. Supervisor Baking is familiar with the pt. Pt was just discharged from the [facility] yesterday. Patient was admitted because of depression and cocaine abuse. Pt. reports that he came back as he became increasingly anxious and depressed because of his living and financial situation. Supervisor Baking spoke with the pt and discussed about going to senior care. He reports depressed mood and anxiety but denies any suicidal ideation or homicidal ideation. He denies any auditory or visual hallucinations or any persecutory delusions. He denies any other substance abuse. Pt agreed to go to the senior care upon discharge. Past medical history None reported Past Psychiatric History - Past Psychiatric History Previous Treatment History: Inpatient Pertinent Medical Hx (Current Medical&Sleep Prob, Allergies): Allergies Allergy/AdvReac Type Severity Reaction Status Date / Time sulfamethoxazole Allergy Verified 11/23/16 14:55 [From Bactrim] trimethoprim [From Bactrim] Allergy Verified 11/23/16 14:55 seafood Allergy Uncoded 11/14/16 00:54 Escitalopram [Lexapro] 10 mg PO DAILY 14 Days tab 10/25/16 traZODone [Desyrel] 50 mg PO HS 14 Days tab 10/25/16 Escitalopram [Lexapro] 20 mg PO DAILY 14 Days tab 11/01/16 Gabapentin [Neurontin] 300 mg PO BID 14 Days cap 11/01/16 traZODone [Desyrel] 100 mg PO HS #14 tab 11/01/16 Escitalopram [Lexapro] 20 mg PO DAILY #30 tab 11/22/16 Gabapentin [Neurontin] 300 mg PO BID #60 cap 11/22/16 predniSONE [predniSONE Tab] 10 mg PO DAILY #30 tab 11/22/16 traZODone [Desyrel] 100 mg PO HS #30 tab 11/22/16 Review of Systems - Review of Systems All systems: reviewed and no additional remarkable complaints except - Psychiatric Psychiatric: Anxiety, Irritability Mental Status Examination - Personal Presentation Personal Presentation: Looks stated age - Affect Affect: Constricted, Depressed - Motor Activity Motor Activity: Calm - Reliability in Providing Information Reliability in Providing Information: Good - Speech Speech: Organized - Mood Mood: Anxious - Formal Thought Process Formal Thought Process: No Impairment - Obsessions/Compulsions Obsessions: No Compulsions: No - Cognitive Functions Orientation: Person, Place, Situation, Time Sensorium: Alert Attention/Concentration: Attentive Abstract Thinking: [place] Estimate of Intelligence: Below average Judgement: Imparied, as evidence by: Poor judgement, Intact, as evidence by: Insight regarding need for hospitalization - Risk Risk: Diminished functioning - Limitations Limitations: Living alone DSM 5 DX - DSM 5 DSM 5 Diagnosis: Major depressive disorder recurrent moderate Cocaine Dependence - Recommended/Plan of Treatment Treatment Recommendations and Plan of Treatment: Pt psychiatrically stable to be discharged to the senior care. - Smoking Cessation Smoking Cessation Initiated: No
[2016-11-25 16:03] VITALS: O2SAT 95
== END 2016-11-23 16:50 | disposition home or self-care (01) ==
LOC: C.ER 14:47
DX: F33.9 Major depressive disorder, recurrent, unspecified (principal); F14.20 Cocaine dependence, uncomplicated